=== PATIENT | female | born 1985 | race African-American/Black ===

== ENCOUNTER 2017-01-20 09:38 | Inpatient (IN) | payer MEDICAID, OTHER, SELFPAY ==
[2017-01-20 10:49] LABS: Bilirubin Negative (Negative); Blood, Urine Trace (Negative); Glucose, Urine (Dipstick) >=1000 mg/dL (Negative); Ketone, Urine > or equal to 80 mg/dL (Negative); Nitrite Negative (Negative); Protein, Urine (Dipstick) Negative (Neg-Trace); Urobilinogen 0.2 mg/dL (0.2-1.0)
[2017-01-20 10:50] LABS: #Basophils 0.1 thou/uL (0.0-0.2); #Lymphocytes 0.6 thou/uL (1.20-3.40); #Monocytes 0.2 thou/uL (0.11-0.59); #Neutrophils 8.2 thou/uL (1.40-6.50); %Basophils 0.6 % (0.0-1.0); %Eosinophils 0.2 % (0.0-10.0); %Lymphocytes 6.8 % (21.0-51.0); %Monocytes 2.1 % (0.0-10.0); Hematocrit 38.8 % (36.0-47.0); Mean Platelet Volume 6.9 fL (7.4-10.4); Red Blood Cell (RBC) Count 3.89 mill/uL (4.20-5.40); White Blood Cell (WBC) Count 9.1 thou/uL (4.8-10.8)
[2017-01-20 10:51] LABS: Bacteria/HPF 3+ HPF (None Seen); Hyaline Casts/LPF 0-3 HYALINE CAST LPF (0-3 Hyaline); Squamous Epithelial 21-50 HPF (0-3); WBC/HPF 0-3 HPF (0-3)
[2017-01-20 10:56] LABS: ALT (SGPT) 26 U/L (8-55); AST (SGOT) 36 U/L (5-34); Alkaline Phosphatase 189 U/L (40-150); BUN (Urea Nitrogen) 18 mg/dL (7.0-18.7); Bilirubin, Total 0.4 mg/dL (0.2-1.2); Calc. Creatinine Clearance 0 mL/min (70-130); Calcium 10.6 mg/dL (7.8-10.44); Carbon Dioxide Less than 8 mmol/L (22-29); Chloride 97 mmol/L (98-107); Estimated GFR-MDRD 55; Globulin 5.5 g/dL (2.4-3.5); Protein, Total 10.1 g/dL (6.0-8.3)
[2017-01-20] MEDS ORDERED: Ondansetron HCl/PF 4 MG/2 ML Vial IVP PRN (13:38)
[2017-01-20] MEDS ORDERED: Potassium Phosphate 9 MMOL in Sodium Chloride 0.9% 100 ML IVPB PRN (13:40)
[2017-01-20] MEDS ORDERED: Potassium Chloride 40 MEQ in Premix Bag 1 BAG IVPB PRN (13:40)
[2017-01-20] MEDS ORDERED: Magnesium 2 GM/NS 0.9% 100 ML 2 GM in Premix Bag 1 BAG IVPB PRN (13:40)
[2017-01-20] MEDS ORDERED: Potassium Phosphate 12 MMOL in Sodium Chloride 0.9% 250 ML 250 ML IV PRN (13:40)
[2017-01-20] MEDS ORDERED: Potassium Phosphate 15 MMOL in Sodium Chloride 0.9% 250 ML 250 ML IV PRN (13:40)
[2017-01-20] MEDS ORDERED: Sodium Chloride 0.9% 1,000 ML IV PRN ×3 (13:40)
[2017-01-20] MEDS ORDERED: CCU ELECTROLYTE REPLACEMENT PROTOCOL FS PRN (13:40)
[2017-01-20] MEDS ORDERED: Dextrose 50% Abboject 50 ML SYRINGE SLOW IVP PRN (13:40)
[2017-01-20] MEDS ORDERED: Dextrose 5 %-0.45 % NaCl 1,000 ML IV PRN (13:40)
[2017-01-20] MEDS ORDERED: Potassium Chloride 20 MEQ TAB PO PRN (13:40)
[2017-01-20] MEDS ORDERED: Dextrose 5% in Water 1,000 ML IV PRN ×2 (13:40→23:39)
[2017-01-20] MEDS ORDERED: Magnesium Oxide 400 MG TAB PO PRN ×2 (13:40)
[2017-01-20] MEDS ORDERED: Potassium Chloride 40 MEQ in Sodium Chloride 0.9% 250 ML 250 ML IVPB PRN (13:40)
[2017-01-20] MEDS ORDERED: NS 0.9% w/ 20 MEQ KCL 1,000 ML/1,000 ML BAG IV PRN ×2 (13:40)
[2017-01-20] MEDS ORDERED: ADD ELECTROLYTE REPLACEMENT SET TO PROFILE FS SCH (13:45)
[2017-01-20] MEDS: Sodium Chloride 0.9% 1,000 ML IV PRN ×2 (14:00→15:48)
--- NOTE | 2017-01-20 14:19 | HP ---
DATE OF ADMISSION: 01/20/2017 CHIEF COMPLAINT: Nausea, vomiting, abdominal cramps. HISTORY OF PRESENT ILLNESS: The patient is a 31-year-old -[place] female who was brought fro local in [facility] with the above-mentioned symptoms. Apparently, she did quite well until yesterday wh en she missed couple of doses of her insulin 70/30 and she started vomiting and having abdominal cram ps and she was taken to the emergency room for further evaluation. She was found to be in DKA. She had one episode of DKA in 06/2016 when she was hospitalized for that. She denies any fever or chills . She denies any cough. She denies any other problems. PAST MEDICAL HISTORY: Positive for, 1. Diabetes mellitus type 1, on insulin. 2. Hypertension. PAST SURGICAL HISTORY: 1. C-sections two times. 2. Tubal ligation. ALLERGIES: None. HOME MEDICATIONS: Levemir 15 units in the morning and 20 units at the bedtime. PSYCHIATRIC HISTORY: Positive for depression. FAMILY HISTORY: Her mother at the age of 52 of heart attack and father at the age of 60 of heart attack. SOCIAL HISTORY: She denies any alcohol intake, cigarette smoking or use any illicit drugs. REVIEW OF SYSTEMS: CONSTITUTIONAL: Negative for fever and chills. EYES: Negative for eye pain and eye discharge. ENT: Negative for nasal congestion and epistaxis. CARDIOVASCULAR: Negative for chest pain and palpitations. RESPIRATORY: Negative for shortness of breath and cough. GASTROINTESTINAL: Positive for nausea, vomiting. Negative for diarrhea. Positive for abdominal crane rigger mps. GENITOURINARY: Negative for dysuria and hematuria. DERMATOLOGIC: Negative for rash or erythema. MUSCULOSKELETAL: Negative for muscle pain and joint pains. PSYCHIATRIC: Positive for some depressive moods. PHYSICAL EXAMINATION: GENERAL: She is not in any distress during my visit, she is not actively vomiting. VITAL SIGNS: Blood pressure is 141/86, pulse is 127, and pulse oximetry is 95%. She is afebrile. HEENT: Atraumatic, normocephalic. Eyes are PERRLA. Conjunctivae pinkish. Sclerae nonicteric. Ora l mucosa is somewhat dry. NECK: Supple, no lymphadenopathy. Thyroid is not palpable. LUNGS: Clear. HEART: S1, S2 normal. No S3, no S4, no murmur. Just tachycardic. ABDOMEN: Soft, nontender to palpation. No guarding, no masses. EXTREMITIES: No clubbing, cyanosis or edema. She has a cuff placed on her left ankle. NEUROLOGIC: She is alert and oriented x4. There is no any sensorimotor deficits present. Cranial n erves are intact. LABORATORY DATA: Showed a white count of 9.1, hemoglobin 12.4, hematocrit 38.8, platelet count is 33 2,000, MCV is 99.8. Sodium of 134, potassium 5.6, chloride 97, CO2 less than 8, anion gap was not ca lculated, BUN 18, creatinine 1.36, glucose 677, calcium 10.6. Normal ALT, AST 36, phosphatase 189, t otal protein is 10.1, globulin 5.5. Both of them are elevated. Urinalysis showed yellow urine, clou dy, pH of 5.5, specific gravity is 1.024, proteins negative, glucose more than 1000, ketones more haja n 80, blood trace, 21-50 of squamous epithelial cells, 3+ bacteria, beta hydroxybutyrate 8.19. IMPRESSION: 1. Diabetic ketoacidosis. 2. History of hypertension. 3. Elevated total protein and globulin. 4. Elevated creatinine, which is probably prerenal azotemia secondary to volume loss secondary to vo miting. PLAN: To admit her to ICU. Condition is guarded. IV fluids per protocol, replacement of electrolyt es per protocol and insulin drip per protocol, which is standard for ICU on DKA patients. Also, I am going to check her serum protein electrophoresis since this level is elevated to rule out any abnorm alities.
[2017-01-20 14:47] LABS: Anion Gap 22 mmol/L (10-20); BUN (Urea Nitrogen) 12 mg/dL (7.0-18.7); Calc. Creatinine Clearance 75 mL/min (70-130); Calcium 9.2 mg/dL (7.8-10.44); Carbon Dioxide 13 mmol/L (22-29); Chloride 108 mmol/L (98-107); Estimated GFR-MDRD 78
[2017-01-20] MEDS ORDERED: FLU VACC QS2017-18 36 mo. & older 0.5 ML SYRINGE IM ONE (15:00)
--- NOTE | 2017-01-20 15:16 | RAD ---
PORTABLE CHEST: History: Respiratory distress. Comparison: 03-17-16 FINDINGS: Heart size and mediastinum are within normal limits. The lungs are clear of infiltrates. No significa nt bony findings. IMPRESSION: No active intrathoracic disease. POS: [facility]
[2017-01-20] MEDS: D5 1/2 NS w/20 mEq KCL 1,000 ML IV PRN ×2 (18:08→22:07)
[2017-01-20] MEDS ORDERED: hydrALAZINE 25 MG TAB PO PRN (19:19)
[2017-01-20] MEDS ORDERED: Metoprolol Tartrate 25 MG TAB PO SCH (20:30)
[2017-01-20 20:50] LABS: Calcium 8.2 mg/dL (7.8-10.44); Chloride 107 mmol/L (98-107)
[2017-01-20 20:52] LABS: Anion Gap 14 mmol/L (10-20); Carbon Dioxide 19 mmol/L (22-29)
[2017-01-20 20:54] LABS: Calc. Creatinine Clearance 90 mL/min (70-130); Estimated GFR-MDRD Greater than 90
[2017-01-20 20:55] LABS: BUN (Urea Nitrogen) 7 mg/dL (7.0-18.7)
[2017-01-20] MEDS: Famotidine 20 MG TAB PO SCH (20:55)
[2017-01-20] MEDS: Gabapentin 300 MG CAP PO SCH (20:55)
[2017-01-20 23:00] VITALS: BMI 22.6
[2017-01-20] MEDS ORDERED: Dextrose 50% Abboject 50 ML SYRINGE IVP PRN (23:39)
[2017-01-20] MEDS ORDERED: Insulin Detemir 100 UNITS/ML 20 UNITS in Pre-Filled Syringe 1 EACH SC SCH (23:45)
[2017-01-21 05:19] LABS: ALT (SGPT) 29 U/L (8-55); AST (SGOT) 66 U/L (5-34); Alkaline Phosphatase 108 U/L (40-150); Anion Gap 14 mmol/L (10-20); BUN (Urea Nitrogen) 7 mg/dL (7.0-18.7); Bilirubin, Total 0.2 mg/dL (0.2-1.2); Calc. Creatinine Clearance 80 mL/min (70-130); Calcium 7.9 mg/dL (7.8-10.44); Carbon Dioxide 17 mmol/L (22-29); Chloride 108 mmol/L (98-107); Estimated GFR-MDRD 85; Protein, Total 5.9 g/dL (6.0-8.3)
[2017-01-21] MEDS: HumaLOG 300 UNITS/3 ML VIAL SC PRN ×2 (05:36→11:24)
[2017-01-21] MEDS: Metoprolol Tartrate 25 MG TAB PO SCH (08:13)
[2017-01-21] MEDS: FLUoxetine HCl 20 MG CAP PO SCH (08:13)
[2017-01-21] MEDS: Famotidine 20 MG TAB PO SCH ×2 (08:13→21:51)
[2017-01-21] MEDS ORDERED: Enoxaparin Sodium 40 MG/0.4 ML SYRINGE SC SCH (09:00)
--- NOTE | 2017-01-21 09:07 | PDOC.PN ---
- Subjective Encounter Start Date: 01/21/17 Encounter Start Time: 08:50 Subjective: f/u for DKA and missed insulin dosing. DKA resolving and off insulin gtt. -: Hypoglycemic this am but corrected with po intake. No new complaints. - Objective Resuscitation Status: Resuscitation Status FULL:Full Resuscitation MAR Reviewed: Yes Vital Signs & Weight: Vital Signs (12 hours) Temp Pulse Resp 01/21/17 08:00 97.6 F 98 14 01/21/17 04:00 98.4 F 01/21/17 00:00 98.2 F Weight Weight 127 lb 13.89 oz Most Recent Monitor Data Heart Rate from ECG 101 NIBP 110/70 NIBP BP-Mean 78 Respiration from ECG 13 SpO2 100 I&O: 01/20/17 01/21/17 01/22/17 06:59 06:59 06:59 Intake Total 4010.3 1080 Output Total 1450 Balance 2560.3 1080 Result Diagrams: 01/20/17 10:40 01/21/17 04:17 Additional Labs: Accuchecks 01/21/17 01/21/17 01/21/17 08:55 08:08 07:42 POC Glucose 133 H 46 L* Less than 35 L* 01/20/17 01/20/17 01/20/17 23:52 23:12 22:09 POC Glucose 116 H 130 H 154 H 01/20/17 01/20/17 01/20/17 21:29 20:26 19:12 POC Glucose 266 H 324 H 166 H 01/20/17 01/20/17 01/20/17 18:06 17:17 16:13 POC Glucose 95 147 H 231 H 01/20/17 14:39 POC Glucose 165 H Laboratory Tests 01/20/17 01/20/17 01/21/17 09:50 09:50 04:17 Potassium 5.6 H Creatinine 1.36 H B-Hydroxybutyrate 8.19 H 0.24 Radiology Reviewed by me: Yes (PCXR - no acute process) EKG Reviewed by me: Yes (Tele - SR) Phys Exam - Physical Examination Constitutional: NAD HEENT: PERRLA, oral pharynx no lesions Neck: no JVD, supple Respiratory: no wheezing, clear to auscultation bilateral Cardiovascular: RRR Gastrointestinal: soft, non-tender, no distention, positive bowel sounds Musculoskeletal: no edema, pulses present Neurological: normal sensation, moves all 4 limbs Psychiatric: A&O x 3 Skin: normal turgor, cap refill <2 seconds Dx/Plan (1) DKA (diabetic ketoacidoses) Code(s): E13.10 - OTH DIABETES MELLITUS WITH KETOACIDOSIS WITHOUT COMA Status : Acute Qualifiers: Diabetes mellitus type: type 1 Comment: Resolving, resume home insulin regimen, advance diet, saline lock IVF (2) DESEAN (acute kidney injury) Code(s): N17.9 - ACUTE KIDNEY FAILURE, UNSPECIFIED Status: Acute Comment: Resolving with IVF's and correction of acidosis, avoid nephrotoxic meds (3) Nausea & vomiting Code(s): R11.2 - NAUSEA WITH VOMITING, UNSPECIFIED Status: Acute Comment: Resolved (4) Hyperkalemia Code(s): E87.5 - HYPERKALEMIA Status: Acute Comment: Resolved with IVF's (5) HTN (hypertension) Code(s): I10 - ESSENTIAL (PRIMARY) HYPERTENSION Status: Chronic Qualifiers: Hypertension type: essential hypertension Qualified Code(s): I10 - Essential (primary) hypertension Comment: Stable, resume Metoprolol - Plan out of bed/ambulate, DVT proph w/SCDs Stable overall -: Resume home insulin regimen -: Advance ADA diet -: Resume Metoprolol -: Transfer to medical floor * AM lab: CMP * Likely home 01/22/17
[2017-01-21] MEDS ORDERED: PROVENTIL INHALER 6.7 G (200 INHALATIONS) INH PRN (09:18)
[2017-01-21] MEDS ORDERED: Insulin Detemir 100 UNITS/ML 15 UNITS in Pre-Filled Syringe 1 EACH SC SCH (09:30)
[2017-01-21] MEDS ORDERED: Sodium Chloride 0.9% 10 ML ONE (15:20)
[2017-01-21] MEDS ORDERED: Insulin Detemir 100 UNITS/ML 20 UNITS in Pre-Filled Syringe 1 EACH SC SCH (21:00)
[2017-01-21] MEDS ORDERED: Gabapentin 300 MG CAP PO SCH (21:00)
[2017-01-21] MEDS: Gabapentin 300 MG CAP PO SCH (21:51)
[2017-01-21] MEDS ORDERED: Insulin Detemir 100 UNITS/ML 10 UNITS in Pre-Filled Syringe 1 EACH SC SCH (23:45)
[2017-01-22 05:54] LABS: ALT (SGPT) 26 U/L (8-55); AST (SGOT) 34 U/L (5-34); Alkaline Phosphatase 117 U/L (40-150); Anion Gap 11 mmol/L (10-20); BUN (Urea Nitrogen) 7 mg/dL (7.0-18.7); Bilirubin, Total 0.2 mg/dL (0.2-1.2); Calc. Creatinine Clearance 116 mL/min (70-130); Calcium 8.7 mg/dL (7.8-10.44); Carbon Dioxide 29 mmol/L (22-29); Chloride 103 mmol/L (98-107); Estimated GFR-MDRD Greater than 90; Globulin 3.3 g/dL (2.4-3.5); Protein, Total 6.3 g/dL (6.0-8.3)
[2017-01-22] MEDS: Famotidine 20 MG TAB PO SCH (07:58)
[2017-01-22] MEDS: Metoprolol Tartrate 25 MG TAB PO SCH (07:58)
[2017-01-22] MEDS: FLUoxetine HCl 20 MG CAP PO SCH (07:59)
[2017-01-22] MEDS ORDERED: Non-Formulary Item 1 EACH (Levemir Flexpen [Levemir Flexpen] 15 UNIT) SC SCH (09:00)
[2017-01-22] MEDS ORDERED: Insulin Detemir 100 UNITS/ML 15 UNITS in Pre-Filled Syringe 1 EACH SC SCH (09:00)
[2017-01-22] MEDS ORDERED: Diabetic Tussin 200 MG/10 ML UDCUP PO PRN (09:38)
[2017-01-22] MEDS: HumaLOG 300 UNITS/3 ML VIAL SC PRN (11:26)
[2017-01-22 11:56] VITALS: BP 150/99; TEMP 98.5
--- NOTE | 2017-01-22 13:41 | DIS ---
DATE OF ADMISSION: 01/20/2017 DATE OF DISCHARGE: 01/22/2017 DISCHARGE DIAGNOSES: 1. Diabetic ketoacidosis, resolved. 2. Hyperkalemia, resolved. 3. Acute kidney injury secondary to #1, resolved. 4. Hypertension, stable. 5. Nausea and vomiting secondary to #1, resolved. CONSULTATIONS: None. PERTINENT LABORATORY DATA AND X-RAY FINDINGS: Creatinine ranged between 0.65-1.36 with estimated GFR ranging between 55 to greater than 90. Potassium ranged between 4.7-5.6, calcium ranged between 9.2 -10.6. CBC within normal limits. Beta hydroxybutyrate level ranged between 0.24-8.19. Portable nydia st x-ray dated 01/20/2017 showed no acute cardiopulmonary process. HOSPITAL COURSE: Patient was initially admitted to the Critical Care Unit after presenting with diab etic ketoacidosis, nausea, vomiting, and abdominal cramps. The patient was placed on insulin infusio n and given aggressive IV fluid hydration in the context of diabetic ketoacidosis protocol. The harini ent's overall glucose improved within 24 hours and the insulin infusion was discontinued. The patien t's nausea and vomiting also resolved with resolution of diabetic ketoacidosis and was able to transi tion to regular oral intake. The patient was noted with intermittent hypoglycemia with adjustments t o her chronic long-acting insulin regimen to current Levemir dosing of 10 units subcutaneously b.i.d. The patient may need additional titration of her long-acting insulin regimen on an ongoing basis af ter discharge. Overall, the patient remained clinically stable throughout the hospital course, ileana ating regular oral intake, voiding appropriately and ready for discharge on 01/22/2017. DISCHARGE MEDICATIONS: 1. Levemir 10 units subcutaneously b.i.d. x24 hours, then 15 units subcutaneously b.i.d. 2. NovoLog FlexPen 15 units subcutaneously t.i.d. with meals. 3. Gabapentin 300 mg p.o. at bedtime. 4. Prozac 20 mg p.o. daily. 5. ProAir HFA 2 puffs inhaled q.4 hours p.r.n. 6. Metoprolol succinate 25 mg p.o. daily. FOLLOWUP: Patient to follow up with her primary care provider Dr. Iman Peña at [facility] in [place], [place] within 7 days of discharge. CONDITION ON DISCHARGE: Stable. ACTIVITY: ad jerome. DIET: ADA. CODE STATUS: FULL. DISPOSITION: Home 01/22/2017.
[2017-01-23 09:19] LABS: A/G Ratio 0.8 (0.7-1.7); Albumin 3.2 g/dL (2.9-4.4); Alpha 1 0.3 g/dL (0.0-0.4); Alpha 2 1.1 g/dL (0.4-1.0); Beta 1.3 g/dL (0.7-1.3); Gamma 1.2 g/dL (0.4-1.8); Globulin, Total 3.9 g/dL (2.2-3.9); M-Spike Not Observed g/dL (Not Observed)
== END 2017-01-22 12:40 | disposition home or self-care (01) | DRG 638 ==
LOC: ERS 09:38 → CCU 13:32 → 3SE 01-21 09:50
PROVIDERS: ADMIT Internal Medicine; ATTEND Internal Medicine
DX: E10.10 Type 1 diabetes mellitus with ketoacidosis without coma (principal); N17.9 Acute kidney failure, unspecified; E87.5 Hyperkalemia; I10 Essential (primary) hypertension; Z79.4 Long term (current) use of insulin; Z23 Encounter for immunization
CPT/HCPCS: 36415; 36416; 71010; 80053; 81003; 81015; 82010; 84165; 85025; 90471; 90682; 93005; 93010; 96361; 96365; A4216; G0008; J1650; J1815; J7050; Q2036

== ENCOUNTER 2017-11-02 05:09 | Inpatient (IN) | payer OTHER ==
[2017-11-02] MEDS ORDERED: diphenhydrAMINE 50 MG/ML VIAL ONE (05:36)
[2017-11-02] MEDS ORDERED: Metoclopramide HCl 10 MG/2 ML VIAL ONE (05:36)
[2017-11-02 05:53] LABS: Base Excess-Venous -16.5 mmol/L (0 (+/- 2.5)); CO2 Tension (PvCO2) 21.5 mmHg (41.0-51.0); Calcium, Ionized 1.03 mmol/L (1.12-1.32); Hemoglobin - Calc 15.2 g/dL (12.0-18.0); O2 Tension (PvO2) 37.3 mmHg (35.0-45.0); Potassium 4.7 mmol/L (3.4-4.7); T. Carbon Dioxide 9.6 mmol/L (1.0-85.0); pH (Venous) 7.227 (7.35-7.45); vO2 Saturation-calc 62.2 % (94-98)
[2017-11-02 05:56] LABS: #Lymphocytes 0.7 thou/uL (1.20-3.40); #Monocytes 0.2 thou/uL (0.11-0.59); #Neutrophils 11.1 thou/uL (1.40-6.50); %Basophils 0.4 % (0.0-1.0); %Eosinophils 0.1 % (0.0-10.0); %Lymphocytes 5.9 % (21.0-51.0); %Monocytes 1.6 % (0.0-10.0); Hemoglobin 13.3 g/dL (12.0-16.0); Mean Corpuscular Hemoglobin 31.9 pg (27.0-31.0); Mean Corpuscular Volume 96.9 fL (78.0-98.0); Mean Platelet Volume 7.2 fL (7.4-10.4); Platelet Count 354 thou/uL (130-400); RBC Distribution Width 11.8 % (11.5-14.5); Red Blood Cell (RBC) Count 4.18 mill/uL (4.20-5.40); White Blood Cell (WBC) Count 12.1 thou/uL (4.8-10.8)
[2017-11-02 06:42] LABS: ALT (SGPT) 13 U/L (8-55); AST (SGOT) 20 U/L (5-34); Albumin 4.5 g/dL (3.5-5.0); Alkaline Phosphatase 87 U/L (40-150); Anion Gap 27 mmol/L (10-20); BUN (Urea Nitrogen) 16 mg/dL (7.0-18.7); Bilirubin, Total 0.5 mg/dL (0.2-1.2); Calc. Creatinine Clearance 0 mL/min (70-130); Calcium 9.9 mg/dL (7.8-10.44); Carbon Dioxide 10 mmol/L (22-29); Chloride 102 mmol/L (98-107); Estimated GFR-MDRD 59; Globulin 4.3 g/dL (2.4-3.5); Lipase 5 U/L (8-78); Potassium 5.1 mmol/L (3.5-5.1); Protein, Total 8.8 g/dL (6.0-8.3); Sodium 134 mmol/L (136-145)
[2017-11-02 06:48] LABS: Glucose 591 mg/dL (70-105)
[2017-11-02 06:53] LABS: Pregnancy Test - Urine (BHCG) Negative (Negative); Pregu Control Background? CLEAR/WHITE (CLR/WHITE); Pregu Control Bar Appear? YES (CONTROL BAR)
[2017-11-02 06:54] LABS: Bilirubin Negative (Negative); Blood, Urine Negative (Negative); Clarity CLEAR (Clear); Glucose, Urine (Dipstick) >=1000 mg/dL (Negative); Leukocyte Negative (Negative); Nitrite Negative (Negative); Protein, Urine (Dipstick) Negative (Neg-Trace); Specific Gravity, Urine 1.022 (1.002-1.036); Urobilinogen 0.2 mg/dL (0.2-1.0)
[2017-11-02 06:55] LABS: Specific Gravity 1.022 (1.002-1.036)
[2017-11-02 08:40] LABS: Anion Gap 26 mmol/L (10-20); BUN (Urea Nitrogen) 16 mg/dL (7.0-18.7); Calc. Creatinine Clearance 0 mL/min (70-130); Calcium 9.2 mg/dL (7.8-10.44); Carbon Dioxide 8 mmol/L (22-29); Chloride 109 mmol/L (98-107); Estimated GFR-MDRD 63; Glucose 494 mg/dL (70-105); Potassium 6.3 mmol/L (3.5-5.1); Sodium 137 mmol/L (136-145)
[2017-11-02] MEDS ORDERED: NS 0.9% w/ 20 MEQ KCL 1,000 ML IV PRN ×2 (09:02)
[2017-11-02] MEDS ORDERED: Dextrose 5 %-0.45 % NaCl 1,000 ML IV PRN (09:02)
[2017-11-02] MEDS ORDERED: hydrALAZINE 20 MG/ML VIAL SLOW IVP PRN (09:02)
[2017-11-02] MEDS ORDERED: Zolpidem Tartrate 5 MG TAB PO PRN (09:02)
[2017-11-02] MEDS ORDERED: Senokot 8.6 MG TAB PO PRN (09:02)
[2017-11-02] MEDS ORDERED: Eucerin (Mineral Oil/Petrolatum,White) 30 gm Jar TOP PRN (09:02)
[2017-11-02] MEDS ORDERED: Milk Of Magnesia 30 ML UDCUP PO PRN (09:02)
[2017-11-02] MEDS ORDERED: Loratadine 10 MG TAB PO PRN (09:02)
[2017-11-02] MEDS ORDERED: Acetaminophen 325 MG TAB PO PRN (09:02)
[2017-11-02] MEDS ORDERED: Sodium Chloride 0.9% 1,000 ML IV PRN ×4 (09:02)
[2017-11-02] MEDS ORDERED: HYDROcodone/Acetaminophen 5/325 mg Tablet PO PRN (09:02)
[2017-11-02] MEDS ORDERED: Artificial Tears 18 DROP/0.9 ML EA EYE PRN (09:02)
[2017-11-02] MEDS ORDERED: Chloraseptic Spray 180 ml Bottle PO PRN (09:02)
[2017-11-02] MEDS ORDERED: Loperamide HCl 2 MG CAP PO PRN (09:02)
[2017-11-02] MEDS ORDERED: CCU Electrolyte Replacement 1 EACH IVPB ONE (09:02)
[2017-11-02] MEDS ORDERED: Ondansetron ODT 4 MG TAB PO PRN (09:02)
[2017-11-02] MEDS ORDERED: Diabetic Tussin 200 MG/10 ML UDCUP PO PRN (09:02)
[2017-11-02] MEDS ORDERED: Sodium Chloride 0.65% Nasal 44 ML BOT EA NARE PRN (09:02)
[2017-11-02] MEDS ORDERED: Albuterol Sulfate 2.5 mg/3 ml Neb NEB PRN (09:08)
[2017-11-02] MEDS ORDERED: Potassium Chloride 40 MEQ in Premix Bag 1 BAG IVPB PRN (09:09)
[2017-11-02] MEDS ORDERED: Potassium Phosphate 12 MMOL in Sodium Chloride 0.9% 250 ML 250 ML IV PRN (09:09)
[2017-11-02] MEDS ORDERED: Potassium Phosphate 9 MMOL in Sodium Chloride 0.9% 100 ML IVPB PRN (09:09)
[2017-11-02] MEDS ORDERED: Potassium Chloride 40 MEQ in Sodium Chloride 0.9% 250 ML 250 ML IVPB PRN (09:09)
[2017-11-02] MEDS ORDERED: Potassium Chloride 20 MEQ TAB PO PRN (09:09)
[2017-11-02] MEDS ORDERED: Magnesium 2 GM/NS 0.9% 100 ML 2 GM in Premix Bag 1 BAG IVPB PRN (09:09)
[2017-11-02] MEDS ORDERED: Magnesium Oxide 400 MG TAB PO PRN ×2 (09:09)
[2017-11-02] MEDS ORDERED: Potassium Phosphate 15 MMOL in Sodium Chloride 0.9% 250 ML 250 ML IV PRN (09:09)
--- NOTE | 2017-11-02 09:24 | HP ---
PRIMARY CARE PHYSICIAN: [facility] call admission. REASON FOR ADMISSION: Diabetic ketoacidosis. HISTORY OF PRESENT ILLNESS: A 32-year-old -[place] female who has history of type 1 diabetes on insulin, who came to emergency room with complaint of hyperglycemia. The patient has diabetes type 1 for last 22 years and she had in the past several admissions for DKA. At this time, the patient reports that she did not took insulin last night. She checked her blood sugar which was very high. She was feeling nausea and mild shortness of breath. She was feeling haja t she is going to get diabetic ketoacidosis and that is why she decided to come to emergency room for evaluation. She does not have any kind of infection. She denies any UTI symptoms. She does not jacome ve any constipation, diarrhea, melena, hematochezia. She does not have any upper respiratory or lowe r respiratory symptoms. Patient reports that normally she takes Levemir insulin 22 units twice daily , but last night she did not took bedtime Levemir dose and she is on NovoLog 15 units twice daily whi ch she took yesterday. She did not ran out her medication. She denies any abdominal pain. She king es any headache, sore throat, or focal motor or sensory symptoms. ALLERGIES: No known drug allergy. CURRENT HOME MEDICATIONS: NovoLog insulin 15 units subcu twice daily, Levemir insulin 20 units subcu b.i.d., lisinopril 5 mg p.o. daily, metoprolol 25 mg twice daily. REVIEW OF SYSTEMS: The following complete review of systems was negative, unless otherwise mentioned in the HPI or below: Constitutional: Weight loss or gain, ability to conduct usual activities. Skin: Rash, itching. Eyes: Double vision, pain. ENT/Mouth: Nose bleeding, neck stiffness, pain, tenderness. Cardiovascular: Palpitations, dyspnea on exertion, orthopnea. Respiratory: Shortness of breath, wheezing, cough, hemoptysis, fever or night sweats. Gastrointestinal: Poor appetite, abdominal pain, heartburn, nausea, vomiting, constipation, or diarr hea. Genitourinary: Urgency, frequency, dysuria, nocturia. Musculoskeletal: Pain, swelling. Neurologic/Psychiatric: Anxiety, depression. Allergy/Immunologic: Skin rash, bleeding tendency. Please see my HPI for pertinent positive and negative. All other review of systems reviewed and nega tive except as mentioned in the HPI. PAST MEDICAL HISTORY: Diabetes type 1 on insulin, hypertension and mild intermittent asthma. PAST SURGICAL HISTORY: x2. PAST PSYCHIATRIC HISTORY: Anxiety, depression, bipolar disorder, not on any specific medication. SOCIAL HISTORY: Patient is drinking alcohol socially. She denies any smoking. She denies any other illicit drug abuse. She is working in [employer]. FAMILY HISTORY: No strong family history of stroke, but mother by age of 52 from heart attack a nd father from heart attack by age of 60. No family history of stroke or cancer. EMERGENCY ROOM COURSE: Patient is given IV fluid, insulin drip, Reglan 10 mg, and Benadryl 25 mg. PHYSICAL EXAMINATION: VITAL SIGNS: On arrival, blood pressure 166/82, pulse 135, respiratory rate 16, temperature 98.0, sa turation 99% on room air, weight 57.5 kilograms. GENERAL: Patient is currently alert, awake, no obvious acute distress, hypertensive and tachycardic. HEAD: Normocephalic, atraumatic. EYES: Pupils round, reactive to light. Extraocular muscle intact. ENT: Dry mucous membrane, no oral lesion, no pharyngeal erythema, no exudate. NECK: Supple, no JVD, no thyromegaly, no carotid bruit, no jugular venous distention. LUNGS: Clear to auscultation without any rhonchi or rales. CARDIAC: S1, S2 regular, tachycardia, no murmur, no gallop, no rub. ABDOMEN: Soft. Diffuse, vague discomfort noted. No peritoneal sign, no guarding, no rigidity, no r ebound. BACK: Examination unremarkable, no CVA tenderness. EXTREMITIES: Upper extremity passive movements of all joints are normal. Lower extremities: No saba ma. Good distal pulsation. SKIN: No skin rash. HEMATOLOGICAL: No lymphadenopathy. PSYCHIATRIC: Normal affect. NEUROLOGIC: Nonfocal examination. Motor and sensation within normal limits. Speech normal. IMAGING DATA AND SIGNIFICANT LABORATORY DATA: EKG showing sinus tachycardia. CBC: WBC 12.1, hemogl obin 13.3, platelets 354 with a left shift. VBG; pH 7.22, CO2 21.5, O2 37.3, bicarbonate 9.0. BMP: Sodium 137, potassium 6.3, chloride 109, carbon dioxide 8, BUN 16, creatinine 1.21, glucose 591, lewis cium 9.2. LFT: AST 20, ALT 13, alkaline phosphatase 87, lipase 5 and lbumin 4.5. Urinalysis: Gluc osuria and ketonuria. test negative. Serum 7.30. ASSESSMENT AND PLAN/IMPRESSION: 1. Acute diabetic ketoacidosis, type 1. Patient has ketoacidosis with a history of diabetes type 1, current presentation is consistent with diabetic ketoacidosis. The patient will be admitted in inte rmediate care unit. We will continue with insulin drip. We will monitor Accu-Chek every hourly. Th e patient will be given IV fluid per protocol. Her electrolytes will be replaced per protocol. We w ill monitor BMP and serum ketones as per protocol. We will check magnesium and phosphorus level. We will repeat CBC, BMP, hemoglobin A1c, magnesium, phosphorus, and serum ketones tomorrow. When anion gap closed and blood sugar drops to below 250, at that time, we will change IV fluid to dextrose con taining solution. We will closely monitor in intermediate care unit until DKA resolves and then we w ill consider transferring her to medical floor. After that, we will titrate her insulin requirement and adjust dose. Meanwhile, we will continue with symptomatic treatment. 2. Hypertension. We will continue lisinopril 5 mg p.o. daily and metoprolol 25 mg twice daily. 3. Mild intermittent asthma. We will continue Ventolin nebulization q.6 hours p.r.n. 4. Leukocytosis and sinus tachycardia likely related with DKA and underlying dehydration. We will m onitor on telemetry. 5. Deep venous thrombosis prophylaxis, Lovenox 40 mg subcu daily. 6. Gastrointestinal prophylaxis paste, Pepcid 20 mg IV b.i.d. 7. Code status: The patient is FULL CODE. The patient does not have any surrogate decision maker. Disposition plan based on clinical course. We are expecting patient's stay in hospital more than 2 m idnights. Plan of care discussed with the patient in detail.
[2017-11-02] MEDS: Famotidine/PF 20 mg/2ml Vial SLOW IVP SCH ×2 (09:26→21:11)
[2017-11-02] MEDS: Ondansetron HCl/PF 4 MG/2 ML Vial IVP PRN ×2 (09:28→17:38)
[2017-11-02] MEDS: Enoxaparin Sodium 40 MG/0.4 ML SYRINGE SC SCH (09:28)
[2017-11-02 10:25] VITALS: BMI 22.1
[2017-11-02 11:20] LABS: Magnesium 2.3 mg/dL (1.6-2.6); Phosphorus 3.1 mg/dL (2.3-4.7)
[2017-11-02] MEDS ORDERED: Calcium Carbonate 500 MG ChewTAB PO PRN (11:41)
[2017-11-02] MEDS: Mag-Al 1200 mg/1200 mg/30 ML UDCUP PO PRN ×2 (12:19→17:41)
[2017-11-02 12:50] LABS: BUN (Urea Nitrogen) 12 mg/dL (7.0-18.7); Calc. Creatinine Clearance 70 mL/min (70-130); Calcium 9.1 mg/dL (7.8-10.44); Chloride 114 mmol/L (98-107); Estimated GFR-MDRD 75; Glucose 260 mg/dL (70-105); Potassium 4.6 mmol/L (3.5-5.1); Sodium 140 mmol/L (136-145)
[2017-11-02 13:05] LABS: Carbon Dioxide Less than 8 mmol/L (22-29)
[2017-11-02 13:36] LABS: Anion Gap 22 mmol/L (10-20); BUN (Urea Nitrogen) 14 mg/dL (7.0-18.7); Calc. Creatinine Clearance 69 mL/min (70-130); Calcium 8.9 mg/dL (7.8-10.44); Chloride 114 mmol/L (98-107); Estimated GFR-MDRD 73; Glucose 253 mg/dL (70-105); Potassium 4.5 mmol/L (3.5-5.1); Sodium 140 mmol/L (136-145)
[2017-11-02 13:38] LABS: Carbon Dioxide 9 mmol/L (22-29)
[2017-11-02] MEDS: Metoprolol Tartrate 25 MG TAB PO SCH (14:03)
[2017-11-02 17:35] LABS: Anion Gap 12 mmol/L (10-20); BUN (Urea Nitrogen) 8 mg/dL (7.0-18.7); Calc. Creatinine Clearance 77 mL/min (70-130); Calcium 8.6 mg/dL (7.8-10.44); Carbon Dioxide 17 mmol/L (22-29); Chloride 115 mmol/L (98-107); Estimated GFR-MDRD 84; Glucose 76 mg/dL (70-105); Potassium 4.6 mmol/L (3.5-5.1); Sodium 139 mmol/L (136-145)
[2017-11-02] MEDS: D5 1/2 NS w/20 mEq KCL 1,000 ML IV PRN ×2 (17:44→21:15)
[2017-11-02 23:02] LABS: Anion Gap 8 mmol/L (10-20); BUN (Urea Nitrogen) 9 mg/dL (7.0-18.7); Calc. Creatinine Clearance 71 mL/min (70-130); Calcium 8.3 mg/dL (7.8-10.44); Carbon Dioxide 18 mmol/L (22-29); Chloride 113 mmol/L (98-107); Estimated GFR-MDRD 76; Glucose 268 mg/dL (70-105); Potassium 4.3 mmol/L (3.5-5.1); Sodium 135 mmol/L (136-145)
[2017-11-03] MEDS: D5 1/2 NS w/20 mEq KCL 1,000 ML IV PRN ×2 (01:49→05:26)
[2017-11-03 04:35] LABS: #Basophils 0.1 thou/uL (0.0-0.2); #Lymphocytes 2.4 thou/uL (1.20-3.40); #Monocytes 0.9 thou/uL (0.11-0.59); #Neutrophils 9.6 thou/uL (1.40-6.50); %Basophils 0.4 % (0.0-1.0); %Eosinophils 0.3 % (0.0-10.0); %Lymphocytes 18.1 % (21.0-51.0); %Neutrophils 74.2 % (42.0-75.0); Hemoglobin 11.5 g/dL (12.0-16.0); Mean Corpuscular HGB CONC 33.4 g/dL (32.0-36.0); Mean Corpuscular Hemoglobin 32.1 pg (27.0-31.0); Mean Corpuscular Volume 96.1 fL (78.0-98.0); Mean Platelet Volume 6.7 fL (7.4-10.4); Platelet Count 334 thou/uL (130-400); RBC Distribution Width 12.2 % (11.5-14.5); Red Blood Cell (RBC) Count 3.59 mill/uL (4.20-5.40)
[2017-11-03 04:38] LABS: Hemoglobin A1c 12.9 % (4.0-6.0)
[2017-11-03 05:24] LABS: ALT (SGPT) 9 U/L (8-55); AST (SGOT) 12 U/L (5-34); Albumin 3.5 g/dL (3.5-5.0); Alkaline Phosphatase 67 U/L (40-150); Anion Gap 11 mmol/L (10-20); BUN (Urea Nitrogen) 7 mg/dL (7.0-18.7); Bilirubin, Total 0.4 mg/dL (0.2-1.2); Calc. Creatinine Clearance 89 mL/min (70-130); Calcium 8.3 mg/dL (7.8-10.44); Carbon Dioxide 16 mmol/L (22-29); Chloride 113 mmol/L (98-107); Estimated GFR-MDRD Greater than 90; Glucose 135 mg/dL (70-105); Magnesium 1.8 mg/dL (1.6-2.6); Potassium 4.2 mmol/L (3.5-5.1); Protein, Total 6.5 g/dL (6.0-8.3); Sodium 136 mmol/L (136-145)
[2017-11-03] MEDS: Famotidine/PF 20 mg/2ml Vial SLOW IVP SCH ×2 (07:53→20:44)
[2017-11-03] MEDS: Metoprolol Tartrate 25 MG TAB PO SCH ×2 (07:58→20:45)
[2017-11-03] MEDS: Lisinopril 5 MG TAB PO SCH (07:58)
[2017-11-03] MEDS: Enoxaparin Sodium 40 MG/0.4 ML SYRINGE SC SCH (07:58)
[2017-11-03] MEDS ORDERED: Insulin Glargine 20 UNITS in Pre-Filled Syringe 1 EACH SC SCH (09:45)
[2017-11-03] MEDS ORDERED: Dextrose 5% in Water 1,000 ML IV PRN (09:46)
[2017-11-03] MEDS ORDERED: Dextrose 50% Abboject 50 ML SYRINGE IVP PRN (09:46)
[2017-11-03] MEDS ORDERED: HumaLOG 300 UNITS/3 ML VIAL SC PRN (09:46)
--- NOTE | 2017-11-03 12:26 | PDOC.PN ---
- Subjective Encounter Start Date: 11/03/17 Encounter Start Time: 12:24 Subjective: nsg notes rev, franky ovn, c/o of odynophagia - Objective Resuscitation Status: Resuscitation Status FULL:Full Resuscitation Vital Signs & Weight: Vital Signs (12 hours) Temp Pulse Resp BP Pulse Ox 11/03/17 11:05 98.7 F 103 H 16 118/74 99 11/03/17 07:58 112 H 11/03/17 07:25 98 11/03/17 07:19 98.4 F 112 H 16 129/89 99 11/03/17 04:00 99.8 F H 108 H 16 138/89 99 Weight Weight 124 lb 12.8 oz I&O: 11/02/17 11/03/17 11/04/17 06:59 06:59 06:59 Intake Total 7017.1 1730.3 Output Total 2700 800 Balance 4317.1 930.3 Result Diagrams: 11/03/17 04:07 11/03/17 04:07 Additional Labs: Accuchecks 11/03/17 11/03/17 11/03/17 10:01 09:03 07:57 POC Glucose 179 H 191 H 187 H 11/03/17 11/03/17 11/03/17 07:04 06:21 05:23 POC Glucose 240 H 245 H 213 H 11/03/17 11/03/17 11/03/17 04:29 03:27 02:22 POC Glucose 144 H 121 H 118 H 11/03/17 11/02/17 11/02/17 01:20 23:58 22:17 POC Glucose 134 H 173 H 217 H 11/02/17 11/02/17 11/02/17 21:07 20:00 18:26 POC Glucose 241 H 253 H 173 H 11/02/17 11/02/17 11/02/17 17:13 16:09 15:03 POC Glucose 75 74 133 H 11/02/17 11/02/17 11/02/17 14:03 13:12 12:22 POC Glucose 172 H 258 H 279 H Phys Exam - Physical Examination Constitutional: NAD lying in hospital bed HEENT: PERRLA, moist MMs Respiratory: no wheezing, no rales, no rhonchi, clear to auscultation bilateral Cardiovascular: RRR, no significant murmur, no rub Gastrointestinal: soft, non-tender, no distention, positive bowel sounds Musculoskeletal: no edema, pulses present Neurological: moves all 4 limbs Psychiatric: normal affect, A&O x 3 Dx/Plan - Plan * DKA * improving * transition pt to her home regimen with continued close monitoring * pt c/o odynophagia as the reason for poor po intake, states it started after she was throwing up - feels like her throat is tender * given poor oral intake, continue with IVF hydration poorly controlled IDDM needs close o/p f/u with A1c of 12 diet: diabetic as say activity: as say dvt ppx Review of Systems - Medications/Allergies Allergies/Adverse Reactions: Allergies Allergy/AdvReac Type Severity Reaction Status Date / Time No Known Allergies Allergy Verified 11/02/17 19:07 Medications: Current Medications Acetaminophen (Tylenol) 650 mg PO Q4H PRN PRN Reason: Headache/Fever or Pain Hydrocodone Bitart/Acetaminophen ([place] 5/325) 1 tab PO Q4H PRN PRN Reason: Moderate Pain (4-6) Last Admin: 11/02/17 09:25 Dose: 1 tab Al Hydroxide/Mg Hydroxide (Maalox) 30 ml PO Q6H PRN PRN Reason: Heartburn or Indigestion Last Admin: 11/02/17 17:41 Dose: 30 ml Albuterol Sulfate (Ventolin) 2.5 mg NEB [id number] PRN PRN Reason: Wheezing Artificial Tears (Tears Naturale) 0 drop EA EYE PRN PRN PRN Reason: Dry Eyes Calcium Carbonate (Tums) 1,000 mg PO Q4H PRN PRN Reason: Heartburn or Indigestion Last Admin: 11/02/17 13:13 Dose: 1,000 mg Dextrose/Water (Dextrose 50%) 25 gm IVP PRN PRN PRN Reason: HYPOGLYCEMIA PROTOCOL Enoxaparin Sodium (Lovenox) 40 mg SC 0900 EDY Last Admin: 11/03/17 07:58 Dose: 40 mg Famotidine (Pepcid) 20 mg SLOW IVP Q12HR EDY Last Admin: 11/03/17 07:53 Dose: 20 mg Glucagon (Glucagon) 1 mg IM PRN PRN PRN Reason: HYPOGLYCEMIA PROTOCOL Guaifenesin (Robitussin Sf) 200 mg PO Q4H PRN PRN Reason: Cough Hydralazine HCl (Apresoline) 10 mg SLOW IVP Q4H PRN PRN Reason: Systolic BP > 180 Potassium Chloride 40 meq/ (Sodium Chloride) 270 mls @ 135 mls/hr IVPB ASDIR PRN PRN Reason: FOR SERUM K+ 2.5 - 3.5 Potassium Chloride 40 meq/ (Device) 100 mls @ 50 mls/hr IVPB ASDIR PRN PRN Reason: FOR SERUM K+ 2.5 - 3.5 Magnesium Sulfate 1 gm/ Sodium (Chloride) 102 mls @ 102 mls/hr IV PRN PRN PRN Reason: MAG LEVEL 1.4 - 2.0 Magnesium Sulfate 2 gm/ Device 100 mls @ 100 mls/hr IVPB ASDIR PRN PRN Reason: MAGNESIUM < 1.4 Potassium Phosphate 9 mmol/ (Sodium Chloride) 103 mls @ 25.75 mls/hr IVPB ASDIR PRN PRN Reason: Phosphate 1.0-1.8 Potassium Phosphate 12 mmol/ (Sodium Chloride) 254 mls @ 63.5 mls/hr IV ASDIR PRN PRN Reason: Serum phosphate 0.5-0.9 Potassium Phosphate 15 mmol/ (Sodium Chloride) 255 mls @ 63.75 mls/hr IV ASDIR PRN PRN Reason: Serum Phos < 0.5 Insulin Glargine 20 units/ (Miscellaneous Medication) 0.2 mls @ 0 mls/hr SC BID EDY Dextrose/Water (D5w) 1,000 mls @ 0 mls/hr IV INF PRN PRN Reason: HYPOGLYCEMIA PROTOCOL Insulin Human Lispro (Humalog) 15 units SC BID [facility] Insulin Human Lispro (Humalog) 0 units SC .MILD SLIDING SCALE PRN; Protocol PRN Reason: MILD SLIDING SCALE Lisinopril (Zestril) 5 mg PO DAILY [facility] Last Admin: 11/03/17 07:58 Dose: 5 mg Loperamide HCl (Imodium) 2 mg PO PRN PRN PRN Reason: Diarrhea/Loose Stools Loratadine (Claritin) 10 mg PO DAILYPRN PRN PRN Reason: Sinus Symptoms Magnesium Hydroxide (Milk Of Magnesium) 30 ml PO DAILYPRN PRN PRN Reason: Constipation Magnesium Oxide (Magnesium Oxide) 400 mg PO BIDPRN PRN PRN Reason: FOR SERUM MAG 1.4 - 2.0 Magnesium Oxide (Magnesium Oxide) 800 mg PO PRN PRN PRN Reason: FOR SERUM MAG < 1.4 Metoprolol Tartrate (Lopressor) 25 mg PO BID EDY Last Admin: 11/03/17 07:58 Dose: 25 mg Mineral Oil/White Petrolatum (Eucerin Cream) 0 gm TOP BIDPRN PRN PRN Reason: Dry Skin Miscellaneous Medication (Phos-Nak) 1 pkt PO TIDPRN PRN PRN Reason: FOR PHOS LEVEL 1.0 - 1.8 Miscellaneous Medication (Phos-Nak) 2 pkt PO TIDPRN PRN PRN Reason: FOR PHOS LEVEL 0.5 - 1.0 Last Admin: 11/03/17 06:49 Dose: 2 pkt Ondansetron HCl (Zofran Odt) 4 mg PO Q6H PRN PRN Reason: Nausea/Vomiting Ondansetron HCl (Zofran) 4 mg IVP Q6H PRN PRN Reason: Nausea/Vomiting Last Admin: 11/02/17 17:38 Dose: 4 mg Phenol (Chloraseptic [address] Bot) 0 ml PO PRN PRN PRN Reason: Sore Throat Potassium Chloride (K-Dur) 40 meq PO ASDIR PRN PRN Reason: FOR SERUM K+ 2.5 - 3.5 Potassium Chloride (Klor-Con) 40 meq PER TUBE ASDIR PRN PRN Reason: FOR SERUM K+ 2.5-3.5 Senna (Senokot) 2 tab PO HSPRN PRN PRN Reason: Constipation Sodium Chloride ([place] Nasal [address] 0.65%) 0 ml EA NARE QIDPRN PRN PRN Reason: Nasal Congestion Zolpidem Tartrate (Ambien) 5 mg PO HSPRN PRN PRN Reason: Insomnia
[2017-11-03] MEDS: Ondansetron HCl/PF 4 MG/2 ML Vial IVP PRN (14:12)
[2017-11-03] MEDS ORDERED: Pantoprazole 40 MG VIAL IVP SCH (15:45)
[2017-11-03 15:49] LABS: Bilirubin Negative (Negative); Blood, Urine Large (Negative); Clarity CLOUDY (Clear); Glucose, Urine (Dipstick) 500 mg/dL (Negative); Leukocyte Small (Negative); Nitrite Negative (Negative); Protein, Urine (Dipstick) 100 mg/dL (Neg-Trace); Specific Gravity, Urine 1.013 (1.002-1.036); Urobilinogen 0.2 mg/dL (0.2-1.0); pH, Urine 5.5 (5.0-9.0)
[2017-11-03 15:52] LABS: Hyaline Casts/LPF 0-3 HYALINE CAST LPF (0-3 Hyaline); Pathc Cast-AUWi Flag 0.35 (0-2.49); WBC/HPF 21-50 HPF (0-3)
[2017-11-03 15:55] LABS: RBC/HPF GREATER THAN 50-TNTC HPF (0-3)
[2017-11-03 16:01] LABS: Bacteria/HPF 1+ HPF (None Seen); Yeast-All Forms None Seen HPF (None Seen)
[2017-11-03] MEDS: Aluminum & Magnesium Hydroxide 60 ML, Lidocaine 2% Viscous Solution 30 ML, diphenhydrAM... SSW PRN (16:05)
[2017-11-03] MEDS: Pantoprazole 40 MG VIAL IVP SCH (20:44)
[2017-11-03] MEDS: Insulin Glargine 20 UNITS in Pre-Filled Syringe 1 EACH SC SCH (21:00)
[2017-11-03] MEDS ORDERED: HumaLOG 300 UNITS/3 ML VIAL SC SCH (21:00)
[2017-11-04 04:17] LABS: Anion Gap 10 mmol/L (10-20); BUN (Urea Nitrogen) 6 mg/dL (7.0-18.7); Calc. Creatinine Clearance 110 mL/min (70-130); Calcium 8.6 mg/dL (7.8-10.44); Carbon Dioxide 23 mmol/L (22-29); Chloride 108 mmol/L (98-107); Estimated GFR-MDRD Greater than 90; Glucose 92 mg/dL (70-105); Potassium 3.4 mmol/L (3.5-5.1); Sodium 138 mmol/L (136-145)
[2017-11-04] MEDS: Metoprolol Tartrate 25 MG TAB PO SCH (08:40)
[2017-11-04] MEDS: Lisinopril 5 MG TAB PO SCH (08:40)
[2017-11-04] MEDS: Enoxaparin Sodium 40 MG/0.4 ML SYRINGE SC SCH (08:40)
[2017-11-04] MEDS: Insulin Glargine 20 UNITS in Pre-Filled Syringe 1 EACH SC SCH (08:40)
[2017-11-04] MEDS: Pantoprazole 40 MG VIAL IVP SCH (08:43)
[2017-11-04] MEDS: Aluminum & Magnesium Hydroxide 60 ML, Lidocaine 2% Viscous Solution 30 ML, diphenhydrAM... SSW PRN (09:50)
[2017-11-04 10:53] VITALS: BP 146/95; TEMP 97.7
--- NOTE | 2017-11-04 11:51 | PQF ---
DATE: 11-04-17 ATTN: DR. NICOLA TOMAS Please exercise your independent, professional judgment in responding to the clarification form. Clinical indicators are provided on the bottom of this form for your review Please check appropriate box(s): [ ] Acute Renal Failure (ARF) / Acute Kidney Injury (DESEAN) [ ] Insignificant Lab Values [ ] Other diagnosis [ ] Unable to determine In addition, please specify: Present on Admission (POA): [ ] Yes [ ] No [ ] Unable to determine National Kidney Foundation Guidelines for CKD Staging Stage I Kidney damage with normal or increased GFR GFR > 90 Stage II Kidney damage with mildly decreased GFR GFR 60-89 Stage III Kidney damage with moderately decreased GFR GFR 30-59 Stage IV Kidney damage with severely decreased GFR GFR 16-29 Stage V Kidney failure GFR<15 ESRD End Stage Renal Disease On dialysis Acute Renal Failure/Acute Kidney Failure defined as: Increases in SCr by (>) 0.3 mg/dl within 48 hours OR- Increases in SCr by (>) 1.5 times baseline, known or presumed to have occurred within the prior 7 days OR- Urine volume < 0.5 ml/kg/hour for 6 hours (KDIGO supplement 2012 for RIFLE/SANDRA criteria) For continuity of documentation, please document condition throughout progress notes and discharge summary. Thank You. CLINICAL INDICATORS - SIGNS / SYMPTOMS / LABS GFR: 11-02-17: 59, 63, 75, 73, 84, 76 18: GREATER THAN 90 18: GREATER THAN 90 CREATININE: 11-02-17: 1.27, 1.21, 1.04, 1.06, 0.94, 1.02 18: 0.82 918: 0.66 BUN: 18: 16, 16, 12, 14, 8, 9 916-18: 7 918: 6 ER: NAUSEA, VOMITING, DIARRHEA RISK FACTORS: ER: NAUSEA, VOMITING, DIARRHEA H&P: LEUKOCYTOSIS AND SINUS TACHYCARDIA LIKELY RELATED WITH DKA AND UNDERLYING DEHYDRATION TREATMENTS: ER: IVF, NOVOLIN R, IVF 2L (This form is maintained as a part of the permanent medical record) 2014 [employer]. All Rights Reserved [email or web address] Office: [phone] [facility] [email or web address]
--- NOTE | 2017-11-04 11:58 | PDOC.PN ---
- Subjective Encounter Start Date: 11/04/17 Encounter Start Time: 10:15 -: old records requested/rev Patient seen and examined. No new complaints. No overnight events - Objective Resuscitation Status: Resuscitation Status FULL:Full Resuscitation MAR Reviewed: Yes Vital Signs & Weight: Vital Signs (12 hours) Temp Pulse Resp BP Pulse Ox 11/04/17 10:52 97.7 F 93 15 146/95 H 99 11/04/17 08:40 101 H 11/04/17 08:05 98 11/04/17 07:26 98.2 F 101 H 15 139/98 H 98 11/04/17 03:46 98.4 F 97 16 133/85 99 11/04/17 02:00 99 Weight Weight 124 lb 12.8 oz I&O: 11/03/17 11/04/17 11/05/17 06:59 06:59 06:59 Intake Total 7017.1 2380.3 Output Total 2700 1500 Balance 4317.1 880.3 Result Diagrams: 11/03/17 04:07 11/04/17 03:37 Additional Labs: Accuchecks 11/04/17 11/04/17 11/04/17 10:30 08:13 03:37 POC Glucose 191 H 77 94 11/03/17 11/03/17 11/03/17 20:55 16:45 14:03 POC Glucose 231 H 262 H 165 H EKG Reviewed by me: Yes (nsr) Phys Exam - Physical Examination Constitutional: NAD HEENT: PERRLA, moist MMs, sclera anicteric Neck: no JVD, supple Respiratory: no wheezing, no rales, no rhonchi Cardiovascular: RRR, no significant murmur, no rub Gastrointestinal: soft, non-tender, no distention, positive bowel sounds Musculoskeletal: no edema, pulses present Neurological: non-focal, normal sensation, moves all 4 limbs Psychiatric: normal affect, A&O x 3 Skin: no rash, normal turgor Dx/Plan (1) DESEAN (acute kidney injury) Code(s): N17.9 - ACUTE KIDNEY FAILURE, UNSPECIFIED Status: Resolved Comment : (2) DKA (diabetic ketoacidoses) Code(s): E13.10 - OTH DIABETES MELLITUS WITH KETOACIDOSIS WITHOUT COMA Status : Resolved Qualifiers: Diabetes mellitus type: type 1 Comment: (3) Hyperkalemia Code(s): E87.5 - HYPERKALEMIA Status: Resolved Comment: (4) Nausea & vomiting Code(s): R11.2 - NAUSEA WITH VOMITING, UNSPECIFIED Status: Resolved Comment : (5) HTN (hypertension) Code(s): I10 - ESSENTIAL (PRIMARY) HYPERTENSION Status: Chronic Qualifiers: Hypertension type: essential hypertension Qualified Code(s): I10 - Essential (primary) hypertension Comment: (6) GERD (gastroesophageal reflux disease) Code(s): K21.9 - GASTRO-ESOPHAGEAL REFLUX DISEASE WITHOUT ESOPHAGITIS Status: Chronic - Plan cont current plan of care * medication reviewed as below * symptomatic treatment * stable for discharge * resume home meds. * add protonix Review of Systems - Review of Systems Eyes: negative: Pain, Vision Change, Conjunctivae Inflammation, Eyelid Inflammation, Redness, Other ENT: negative: Ear Pain, Ear Discharge, Nose Pain, Nose Discharge, Nose Congestion, Mouth Pain, Mouth Swelling, Throat Pain, Throat Swelling, Other Respiratory: negative: Cough, Dry, Shortness of Breath, Hemoptysis, SOB with Excertion, Pleuritic Pain, Sputum, Wheezing Cardiovascular: negative: chest pain, palpitations, orthopnea, paroxysmal nocturnal dyspnea, edema, light headedness, other Gastrointestinal: negative: Nausea, Vomiting, Abdominal Pain, Diarrhea, Constipation, Melena, Hematochezia, Other Genitourinary: negative: Dysuria, Frequency, Incontinence, Hematuria, Retention , Other Musculoskeletal: negative: Neck Pain, Shoulder Pain, Arm Pain, Back Pain, Hand Pain, Leg Pain, Foot Pain, Other Skin: negative: Rash, Lesions, Tripp, Bruising, Other - Medications/Allergies Allergies/Adverse Reactions: Allergies Allergy/AdvReac Type Severity Reaction Status Date / Time No Known Allergies Allergy Verified 11/02/17 19:07 Medications: Current Medications Acetaminophen (Tylenol) 650 mg PO Q4H PRN PRN Reason: Headache/Fever or Pain Last Admin: 11/04/17 06:03 Dose: 650 mg Hydrocodone Bitart/Acetaminophen ([place] 5/325) 1 tab PO Q4H PRN PRN Reason: Moderate Pain (4-6) Last Admin: 11/02/17 09:25 Dose: 1 tab Al Hydroxide/Mg Hydroxide (Maalox) 30 ml PO Q6H PRN PRN Reason: Heartburn or Indigestion Last Admin: 11/02/17 17:41 Dose: 30 ml Albuterol Sulfate (Ventolin) 2.5 mg NEB [id number] PRN PRN Reason: Wheezing Artificial Tears (Tears Naturale) 0 drop EA EYE PRN PRN PRN Reason: Dry Eyes Calcium Carbonate (Tums) 1,000 mg PO Q4H PRN PRN Reason: Heartburn or Indigestion Last Admin: 11/02/17 13:13 Dose: 1,000 mg Al Hydroxide/Mg Hydroxide 60 ml/ Lidocaine HCl 30 ml/Diphenhydramine HCl 75 mg 0 ml SSW PRN PRN PRN Reason: Mouth Irritation Last Admin: 11/04/17 09:50 Dose: 120 ml Dextrose/Water (Dextrose 50%) 25 gm IVP PRN PRN PRN Reason: HYPOGLYCEMIA PROTOCOL Enoxaparin Sodium (Lovenox) 40 mg SC 0900 [facility] Last Admin: 11/04/17 08:40 Dose: 40 mg Glucagon (Glucagon) 1 mg IM PRN PRN PRN Reason: HYPOGLYCEMIA PROTOCOL Guaifenesin (Robitussin Sf) 200 mg PO Q4H PRN PRN Reason: Cough Hydralazine HCl (Apresoline) 10 mg SLOW IVP Q4H PRN PRN Reason: Systolic BP > 180 Insulin Glargine 20 units/ (Miscellaneous Medication) 0.2 mls @ 0 mls/hr SC BID [facility] Last Admin: 11/04/17 08:40 Dose: 0.2 mls Dextrose/Water (D5w) 1,000 mls @ 0 mls/hr IV INF PRN PRN Reason: HYPOGLYCEMIA PROTOCOL Insulin Human Lispro (Humalog) 0 units SC .MILD SLIDING SCALE PRN; Protocol PRN Reason: MILD SLIDING SCALE Last Admin: 11/03/17 16:50 Dose: 4 unit Lisinopril (Zestril) 5 mg PO DAILY [facility] Last Admin: 11/04/17 08:40 Dose: 5 mg Loperamide HCl (Imodium) 2 mg PO PRN PRN PRN Reason: Diarrhea/Loose Stools Loratadine (Claritin) 10 mg PO DAILYPRN PRN PRN Reason: Sinus Symptoms Magnesium Hydroxide (Milk Of Magnesium) 30 ml PO DAILYPRN PRN PRN Reason: Constipation Metoprolol Tartrate (Lopressor) 25 mg PO BID [facility] Last Admin: 11/04/17 08:40 Dose: 25 mg Mineral Oil/White Petrolatum (Eucerin Cream) 0 gm TOP BIDPRN PRN PRN Reason: Dry Skin Ondansetron HCl (Zofran Odt) 4 mg PO Q6H PRN PRN Reason: Nausea/Vomiting Ondansetron HCl (Zofran) 4 mg IVP Q6H PRN PRN Reason: Nausea/Vomiting Last Admin: 11/03/17 14:12 Dose: 4 mg Pantoprazole Sodium (Protonix) 40 mg IVP BID [facility] Last Admin: 11/04/17 08:43 Dose: 40 mg Phenol (Chloraseptic [place] 180 Ml Bot) 0 ml PO PRN PRN PRN Reason: Sore Throat Senna (Senokot) 2 tab PO HSPRN PRN PRN Reason: Constipation Sodium Chloride ([place] Nasal [place] 0.65%) 0 ml EA NARE QIDPRN PRN PRN Reason: Nasal Congestion Zolpidem Tartrate (Ambien) 5 mg PO HSPRN PRN PRN Reason: Insomnia
--- NOTE | 2017-11-04 12:16 | DIS ---
DATE OF ADMISSION: 11/02/2017 DATE OF DISCHARGE: 11/04/2017 PRIMARY CARE PHYSICIAN: [facility] call admission. DISCHARGE DISPOSITION: Home. PRIMARY DISCHARGE DIAGNOSES: 1. Nausea and vomiting, resolved. 2. Hyperkalemia, resolved 3. Diabetic ketoacidosis, improved. 4. Acute kidney injury, improved. SECONDARY DISCHARGE DIAGNOSES: Diabetes type 1, gastroesophageal reflux disease and hypertension. PRIMARY PROCEDURE/OPERATION: None. RADIOLOGICAL INVESTIGATION: None. SIGNIFICANT LABORATORY DATA: WBC 13.0, hemoglobin 11.5, platelet 334. VBG: pH 7.22, bicarbonate 9. Sodium 138, potassium 3.4, BUN 6, creatinine 0.66, calcium 8.6, hemoglobin A1c 12.9. Urinalysis un remarkable. Serum ketones 0.58. DISCHARGE MEDICATIONS: Lantus insulin 20 units subcu b.i.d., NovoLog insulin 15 units subcu b.i.d., lisinopril 5 mg p.o. daily, metoprolol tartrate 25 mg p.o. b.i.d., Protonix 40 mg p.o. daily. CONTRAINDICATIONS: None. CODE STATUS: FULL CODE. INPATIENT CONSULTANTS: None. ALLERGIES: No known drug allergies. DISCHARGE PLAN: Post hospital, patient will follow up with primary care physician. HOSPITAL COURSE: A 32-year-old female who has underlying history of diabetes type 1 who came to [facility] room with complaint of nausea, vomiting, and vague abdominal discomfort. On admission, she was tachycardic. She was significantly dehydrated. She had hyperkalemia and acute kidney injury. She had hyperglycemia. The patient was admitted to the intermediate care unit. She was treated with david betic ketoacidosis protocol. She was given IV fluid and her abnormal electrolytes were replaced. Brett az's condition was improved. Her DKA resolved. Acute kidney injury, improved. The patient was a symptomatic. At that point, we started on her home regimen. Her blood sugar is well controlled. To day, she wants to go home. She does not have any symptoms other than mild acid reflux symptoms and t hat is why we prescribed Protonix therapy. Dietary reeducation given. The patient is seen and examined at bedside today. Please see my progress note from today for furthe r detail. This patient is continued to be high risk for readmission because of her noncompliance.
--- NOTE | 2017-11-09 11:18 | EKG ---
Test Reason : Blood Pressure : / mmHG Vent. Rate : 135 BPM Atrial Rate : 135 BPM P-R Int : 140 ms QRS Dur : 076 ms QT Int : 296 ms P-R-T Axes : 066 078 025 degrees QTc Int : 444 ms Sinus tachycardia Otherwise normal ECG No ST elevation/CT Confirmed by DAVID PARDO M.D. ([id number]), editor farm journal TOBI RIVERA ([id number]) on 11/09/2017 11:17:42 AM Referred By: Confirmed By:DAVID PARDO M.D.
== END 2017-11-04 13:15 | disposition home or self-care (01) | DRG 638 ==
LOC: ERS 05:09 → IMCU/EMU 07:24
PROVIDERS: ADMIT Hospitalist; ATTEND Hospitalist
DX: E10.10 Type 1 diabetes mellitus with ketoacidosis without coma (principal); N17.9 Acute kidney failure, unspecified; Z79.4 Long term (current) use of insulin; E87.5 Hyperkalemia; K21.9 Gastro-esophageal reflux disease without esophagitis; I10 Essential (primary) hypertension; R00.0 Tachycardia, unspecified; E86.0 Dehydration; J45.20 Mild intermittent asthma, uncomplicated; F31.9 Bipolar disorder, unspecified; F41.9 Anxiety disorder, unspecified; Z79.51 Long term (current) use of inhaled steroids; R13.10 Dysphagia, unspecified
CPT/HCPCS: 36415; 36416; 80048; 80053; 81003; 81015; 81025; 82010; 82330; 82803; 83036; 83690; 83735; 84100; 85025; 93005; 96361; 96365; 96375; C9113; J1200; J1650; J1815; J2405; J2765; J7050; S0028

== ENCOUNTER 2018-01-20 08:33 | Outpatient (CLI) | payer OTHER ==
--- NOTE | 2018-01-20 15:20 | NM ---
GASTRIC EMPTYING STUDY: Date: 01/20/18 HISTORY: Early satiety. RADIOPHARMACEUTICAL: 2.1 mCi technetium-99m sulfur colloid mixed with scrambled egg, PO. FINDINGS: Sequential anterior images were obtained. Patient refused further imaging after the 2 hour image, and as a result this is an incomplete examination. However, there is 16% gastric emptying at 30 minutes, 36% emptying at 60 minutes, and 52% emptying at 2 hours. IMPRESSION: Incomplete examination as the patient refused additional delayed imaging at 3 and 4 hours. There is 5 2% emptying noted at 2 hour image. POS: HARSHAD
== END 2018-01-20 08:34 | disposition home or self-care (01) ==
LOC: NM 08:33
PROVIDERS: ATTEND Internal Medicine
DX: R68.81 Early satiety (principal)
CPT/HCPCS: 78264; A9541

== ENCOUNTER 2019-10-23 12:56 | Outpatient (CLI) | payer OTHER ==
--- NOTE | 2019-10-23 13:42 | MMO ---
Bilateral MAMMO Bilat Diag DDI+SHELBY. CLINICAL HISTORY: Patient is 34 years old and is seen for diagnostic exam. The patient has no family history of breast cancer. The patient has no personal history of cancer. VIEWS: The views performed were: bilateral craniocaudal with tomosynthesis; bilateral mediolateral oblique with tomosynthesis; and bilateral mediolateral with tomosynthesis. This study has been interpreted with the assistance of computer-aided detection. MAMMOGRAM FINDINGS: There are scattered fibroglandular densities. There are no suspicious masses, suspicious calcifications, or new areas of architectural distortion. IMPRESSION: THERE IS NO MAMMOGRAPHIC EVIDENCE OF MALIGNANCY. A ROUTINE FOLLOW-UP MAMMOGRAM AT AGE 41 IS RECOMMENDED. THE RESULTS OF THIS EXAM WERE SENT TO THE PATIENT. ACR BI-RADS Category 1 - Negative MAMMOGRAPHY NOTE: 1. A negative mammogram report should not delay a biopsy if a dominant of clinically suspicious mass is present. 2. Approximately 10% to 15% of breast cancers are not detected by mammography. 3. Adenosis and dense breasts may obscure an underlying neoplasm. Reported by: TAMY THOMPSON MD Electonically Signed: [id number]
== END 2019-10-23 12:57 | disposition home or self-care (01) ==
LOC: BICMAMMO 12:56
PROVIDERS: ATTEND Nurse Practitioner Women's Health
DX: N64.4 Mastodynia (principal)
CPT/HCPCS: 77066; G0279

== ENCOUNTER 2019-11-13 12:20 | Outpatient (CLI) | payer OTHER ==
--- NOTE | 2019-11-13 12:53 | RAD ---
XR Chest Pa Lat STANDARD HISTORY: Left-sided chest wall pain COMPARISON: None FINDINGS: The heart size is normal. The lungs are well expanded without focal areas of consolidation, pneumothorax or pleural effusions. The bony thorax is normal. IMPRESSION: Normal exam
== END 2019-11-13 12:21 | disposition home or self-care (01) ==
LOC: BICRAD 12:20
PROVIDERS: ATTEND Internal Medicine
DX: R07.89 Other chest pain (principal)
CPT/HCPCS: 71046

== ENCOUNTER 2020-03-17 05:15 | Emergency (ER) | payer OTHER ==
[2020-03-17] MEDS ORDERED: Ondansetron ODT 4 MG TAB ONE (05:35)
[2020-03-17 06:37] LABS: BHCG - Serum Negative (NEGATIVE); Pregs Control Background? CLEAR/WHITE (CLR/WHITE); Pregs Control Bar Appear? YES (CONTROL BAR)
[2020-03-17 06:54] LABS: ALT (SGPT) 9 U/L (8-55); AST (SGOT) 21 U/L (5-34); Albumin 4.1 g/dL (3.5-5.0); Alkaline Phosphatase 80 U/L (40-110); Anion Gap 16 mmol/L (10-20); BUN (Urea Nitrogen) 9 mg/dL (7.0-18.7); Bilirubin, Total 0.4 mg/dL (0.2-1.2); Calc. Creatinine Clearance 0 mL/min (70-130); Calcium 9.3 mg/dL (7.8-10.44); Carbon Dioxide 24 mmol/L (22-29); Chloride 101 mmol/L (98-107); Globulin 4.6 g/dL (2.4-3.5); Glucose 234 mg/dL (70-105); Lipase 4 U/L (8-78); Potassium 4.5 mmol/L (3.5-5.1); Protein, Total 8.7 g/dL (6.0-8.3); Sodium 136 mmol/L (136-145)
[2020-03-17 14:25] LABS: SARS-CoV-2 PCR by NAA Not Detected (NotDetected)
== END 2020-03-17 07:55 | disposition home or self-care (01) ==
LOC: ERS 05:15
DX: R11.2 Nausea with vomiting, unspecified (principal); R05 Cough; Z20.822 Contact with and (suspected) exposure to COVID-19; E10.9 Type 1 diabetes mellitus without complications; I10 Essential (primary) hypertension; Z79.4 Long term (current) use of insulin
CPT/HCPCS: 36416; 71045; 80053; 83690; 84703; 87635; Q0162; U0003; U0005

== ENCOUNTER 2020-03-18 15:53 | Inpatient (IN) | payer OTHER ==
[2020-03-18] MEDS ORDERED: Morphine 4 MG/ML VIAL ONE (18:23)
[2020-03-18] MEDS ORDERED: Clindamycin/D5W 900 mg/50 ml Premix Bag ONE (20:50)
[2020-03-18] MEDS ORDERED: Dextrose 5% in Water 1,000 ML IV PRN (20:58)
[2020-03-18] MEDS ORDERED: Dextrose 50% Abboject 50 ML SYRINGE SLOW IVP PRN (20:58)
[2020-03-18] MEDS ORDERED: Morphine 2 MG/ML VIAL SLOW IVP PRN (20:58)
[2020-03-18] MEDS ORDERED: Ondansetron PF 4 MG/2 ML Vial IVP PRN (20:58)
[2020-03-18] MEDS ORDERED: hydrALAZINE 20 MG/ML VIAL SLOW IVP PRN (20:58)
[2020-03-18] MEDS ORDERED: Sodium Chloride 0.9% 1,000 ML IV SCH (21:00)
[2020-03-18 21:02] LABS: ALT (SGPT) 9 U/L (8-55); AST (SGOT) 11 U/L (5-34); Albumin 4.3 g/dL (3.5-5.0); Alkaline Phosphatase 82 U/L (40-110); Anion Gap 13 mmol/L (10-20); BUN (Urea Nitrogen) 11 mg/dL (7.0-18.7); Bilirubin, Total 0.3 mg/dL (0.2-1.2); Calc. Creatinine Clearance 0 mL/min (70-130); Calcium 9.3 mg/dL (7.8-10.44); Carbon Dioxide 28 mmol/L (22-29); Chloride 103 mmol/L (98-107); Globulin 4.4 g/dL (2.4-3.5); Glucose 108 mg/dL (70-105); Potassium 3.4 mmol/L (3.5-5.1); Protein, Total 8.7 g/dL (6.0-8.3); Sodium 141 mmol/L (136-145)
[2020-03-18] MEDS ORDERED: traMADol HCl 50 MG TAB PO PRN (21:04)
[2020-03-18 21:18] LABS: #Basophils 0.1 thou/uL (0.0-0.2); #Eosinphils 0.1 thou/uL (0.0-0.7); #Monocytes 0.7 thou/uL (0.11-0.59); #Neutrophils 5.6 thou/uL (1.40-6.50); %Basophils 0.9 % (0.0-1.0); %Eosinophils 1.1 % (0.0-10.0); %Lymphocytes 31.6 % (21.0-51.0); %Neutrophils 59.5 % (42.0-75.0); Hemoglobin 13.2 g/dL (12.0-16.0); Mean Corpuscular Hemoglobin 30.7 pg (27.0-31.0); Mean Platelet Volume 6.8 fL (7.4-10.4); Platelet Count 342 thou/uL (130-400); RBC Distribution Width 12.2 % (11.5-14.5); White Blood Cell (WBC) Count 9.5 thou/uL (4.8-10.8)
[2020-03-18 22:04] LABS: Phosphorus 2.3 mg/dL (2.3-4.7)
[2020-03-18] MEDS: Ketorolac Tromethamine 30 MG/ML VIAL IVP SCH (23:19)
[2020-03-18] MEDS: Acetaminophen 500 MG TAB PO SCH (23:20)
[2020-03-18] MEDS: Famotidine 20 MG TAB PO SCH (23:20)
[2020-03-18 23:28] VITALS: BMI 25.5
[2020-03-19] MEDS ORDERED: Potassium Chloride 40 MEQ in Sodium Chloride 0.9% 250 ML 250 ML IVPB SCH (01:00)
[2020-03-19] MEDS: traMADol HCl 50 MG TAB PO PRN ×2 (03:38→14:08)
[2020-03-19] MEDS: Acetaminophen 500 MG TAB PO SCH ×4 (04:29→18:05)
[2020-03-19] MEDS ORDERED: Potassium Bicarbonate/Cit Ac 20 MEQ TAB PO SCH (05:15)
[2020-03-19] MEDS: Ketorolac Tromethamine 30 MG/ML VIAL IVP SCH ×4 (05:47→23:58)
[2020-03-19] MEDS: Clindamycin/D5W 600 MG in Premix Bag 1 BAG IVPB SCH ×3 (05:48→21:09)
[2020-03-19] MEDS: Chlorhexidine Gluconate 15 ML UDCUP SSP SCH ×2 (08:12→19:47)
[2020-03-19] MEDS: Senokot S 8.6-50 MG TAB PO SCH ×2 (08:12→19:48)
[2020-03-19] MEDS: Polyethylene Glycol 3350 17 GM Packet PO SCH (08:13)
[2020-03-19] MEDS: Famotidine 20 MG TAB PO SCH ×2 (08:13→19:48)
[2020-03-19] MEDS: Albuterol 200 PUFF (6.7GM INHALER) INH SCH ×2 (08:23→19:31)
[2020-03-19 08:44] LABS: BHCG - Serum Negative (NEGATIVE); Pregs Control Background? CLEAR/WHITE (CLR/WHITE); Pregs Control Bar Appear? YES (CONTROL BAR)
[2020-03-19] MEDS ORDERED: Polyethylene Glycol 3350 17 GM Packet PO SCH (09:00)
[2020-03-19] MEDS ORDERED: Senokot S 8.6-50 MG TAB PO SCH (09:00)
[2020-03-19] MEDS: Calcium Carbonate 500 MG ChewTAB PO PRN ×2 (11:20→19:47)
[2020-03-19] MEDS: Insulin Regular 300 UNITS/3 ML VIAL SC PRN ×2 (14:09→18:02)
[2020-03-19] MEDS: Insulin Glargine 20 UNITS in Pre-Filled Syringe 1 EACH SC SCH (19:48)
[2020-03-19] MEDS: Mag-Al 1200 mg/1200 mg/30 ML UDCUP PO PRN (21:09)
[2020-03-20] MEDS: Insulin Regular 300 UNITS/3 ML VIAL SC PRN ×4 (00:07→23:10)
[2020-03-20] MEDS: Ketorolac Tromethamine 30 MG/ML VIAL IVP SCH ×4 (05:17→22:57)
[2020-03-20] MEDS: Clindamycin/D5W 600 MG in Premix Bag 1 BAG IVPB SCH ×3 (05:18→22:57)
[2020-03-20] MEDS: Acetaminophen 500 MG TAB PO SCH ×2 (06:57)
[2020-03-20] MEDS ORDERED: Chlorhexidine Gluconate 15 ML UDCUP SSP ONE (07:38)
[2020-03-20] MEDS ORDERED: XYLOCAINE 2%-EPI 1:100,000 20 ML VIAL ONE (07:38)
[2020-03-20] MEDS ORDERED: AFRIN NASAL MIST 15 ML BOT ONE (07:50)
[2020-03-20] MEDS ORDERED: Midazolam HCl 2 mg/2 ml Vial ONE (07:50)
[2020-03-20] MEDS ORDERED: Fentanyl 100 MCG/2 ML VIAL ONE ×4 (07:50→11:40)
[2020-03-20] MEDS ORDERED: Lidocaine 2% Jelly 5 ML TUBE ONE (07:50)
[2020-03-20] MEDS: Albuterol 200 PUFF (6.7GM INHALER) INH SCH ×2 (08:15→22:59)
[2020-03-20] MEDS ORDERED: Acetaminophen W/ Codeine 5 ML UDCUP PO PRN (08:29)
[2020-03-20] MEDS ORDERED: Morphine 2 MG/ML VIAL SLOW IVP PRN (08:30)
[2020-03-20] MEDS ORDERED: Neomycin-Polymyxin 1 ML AMP ONE (08:48)
[2020-03-20] MEDS ORDERED: Sodium Chloride 0.9% 10 ML ONE (08:48)
[2020-03-20] MEDS ORDERED: PHENYLEPHRINE-NS 100 MCG/ML 10 ML SYRINGE ONE (09:16)
[2020-03-20] MEDS ORDERED: Ondansetron PF 4 MG/2 ML Vial ONE (09:16)
[2020-03-20] MEDS ORDERED: Glycopyrrolate 0.2 MG/ML 5 ML SYRINGE ONE (09:16)
[2020-03-20] MEDS ORDERED: Ketorolac Tromethamine 30 MG/ML VIAL ONE (09:16)
[2020-03-20] MEDS ORDERED: diphenhydrAMINE 50 MG/ML VIAL ONE (09:16)
[2020-03-20] MEDS ORDERED: PROPOFOL 200 MG/20 ML VIAL ONE (09:16)
[2020-03-20] MEDS ORDERED: Rocuronium Bromide 10 MG/ML (10ML VIAL) ONE (09:16)
[2020-03-20] MEDS ORDERED: Bacitracin Zinc Ointment 30 gm TUBE ONE (10:54)
[2020-03-20] MEDS ORDERED: Promethazine HCl 25 MG/ML VIAL IM PRN (11:12)
[2020-03-20] MEDS ORDERED: Ondansetron HCl/PF 4 MG/2 ML Vial IVP PRN (11:12)
[2020-03-20] MEDS ORDERED: HYDROmorphone 2 MG/ML VIAL SLOW IVP PRN (11:12)
[2020-03-20] MEDS ORDERED: Labetalol HCl 100 MG/20 ML VIAL ONE (11:37)
[2020-03-20] MEDS ORDERED: hydrALAZINE 20 MG/ML VIAL ONE (11:46)
[2020-03-20] MEDS: Acetaminophen 650 MG/20.3 ML UDCUP PO SCH ×4 (11:50→20:19)
[2020-03-20] MEDS: Chlorhexidine Gluconate 15 ML UDCUP SSP SCH ×2 (11:50→20:19)
[2020-03-20] MEDS: Insulin Glargine 20 UNITS in Pre-Filled Syringe 1 EACH SC SCH ×2 (11:50→20:20)
[2020-03-20] MEDS: Famotidine 20 MG TAB PO SCH ×2 (11:50→21:33)
[2020-03-20] MEDS: Polyethylene Glycol 3350 17 GM Packet PO SCH (11:50)
[2020-03-20] MEDS: Senokot S 8.6-50 MG TAB PO SCH ×2 (11:51→21:33)
[2020-03-20] MEDS: Promethazine HCl 25 MG/ML VIAL IM PRN ×2 (14:51→23:03)
[2020-03-20] MEDS: Mag-Al 1200 mg/1200 mg/30 ML UDCUP PO PRN ×2 (17:38→22:57)
[2020-03-20] MEDS: Sodium Chloride 0.9% 1,000 ML IV SCH ×2 (18:26→22:58)
[2020-03-20 18:30] LABS: #Lymphocytes 0.5 thou/uL (1.20-3.40); #Monocytes 0.3 thou/uL (0.11-0.59); #Neutrophils 13.2 thou/uL (1.40-6.50); %Basophils 0.1 % (0.0-1.0); %Eosinophils 0.1 % (0.0-10.0); %Lymphocytes 3.6 % (21.0-51.0); %Monocytes 2.2 % (0.0-10.0); Mean Corpuscular HGB CONC 33.2 g/dL (32.0-36.0); Mean Corpuscular Hemoglobin 31.8 pg (27.0-31.0); Mean Corpuscular Volume 95.7 fL (78.0-98.0); Platelet Count 310 thou/uL (130-400); RBC Distribution Width 11.9 % (11.5-14.5); Red Blood Cell (RBC) Count 4.41 mill/uL (4.20-5.40); White Blood Cell (WBC) Count 14.1 thou/uL (4.8-10.8)
[2020-03-20 18:48] LABS: Anion Gap 28 mmol/L (10-20); BUN (Urea Nitrogen) 14 mg/dL (7.0-18.7); Calc. Creatinine Clearance 81 mL/min (70-130); Calcium 9.4 mg/dL (7.8-10.44); Carbon Dioxide 12 mmol/L (22-29); Chloride 99 mmol/L (98-107); Glucose 335 mg/dL (70-105); Magnesium 1.7 mg/dL (1.6-2.6); Phosphorus 3.2 mg/dL (2.3-4.7); Potassium 5.8 mmol/L (3.5-5.1); Sodium 133 mmol/L (136-145)
[2020-03-20] MEDS ORDERED: Magnesium 2 GM/50 ML 2 GM in Premix Bag 1 BAG IVPB SCH (20:30)
[2020-03-20] MEDS ORDERED: Melatonin 3 MG TAB PO PRN (21:04)
[2020-03-20] MEDS ORDERED: diphenhydrAMINE 12.5 MG/5 ML UDCUP PO PRN (22:51)
[2020-03-20] MEDS ORDERED: Pantoprazole 40 MG VIAL IVP SCH (23:45)
[2020-03-21] MEDS: Sodium Chloride 0.9% 1,000 ML IV SCH ×2 (03:34→09:47)
[2020-03-21] MEDS: Insulin Regular 300 UNITS/3 ML VIAL SC PRN ×2 (03:36→12:13)
[2020-03-21] MEDS: Acetaminophen 650 MG/20.3 ML UDCUP PO SCH ×2 (03:51→08:41)
[2020-03-21] MEDS: Ketorolac Tromethamine 30 MG/ML VIAL IVP SCH ×2 (04:48→09:47)
[2020-03-21] MEDS: Clindamycin/D5W 600 MG in Premix Bag 1 BAG IVPB SCH (05:29)
[2020-03-21 06:38] LABS: #Basophils 0.1 thou/uL (0.0-0.2); #Lymphocytes 2.6 thou/uL (1.20-3.40); #Neutrophils 8.5 thou/uL (1.40-6.50); %Basophils 0.5 % (0.0-1.0); %Eosinophils 0.2 % (0.0-10.0); %Lymphocytes 21.1 % (21.0-51.0); %Monocytes 8.4 % (0.0-10.0); %Neutrophils 69.9 % (42.0-75.0); Hemoglobin 11.8 g/dL (12.0-16.0); Mean Corpuscular HGB CONC 33.6 g/dL (32.0-36.0); Mean Corpuscular Hemoglobin 31.5 pg (27.0-31.0); Mean Corpuscular Volume 93.6 fL (78.0-98.0); Mean Platelet Volume 6.8 fL (7.4-10.4); Platelet Count 342 thou/uL (130-400); Red Blood Cell (RBC) Count 3.76 mill/uL (4.20-5.40); White Blood Cell (WBC) Count 12.2 thou/uL (4.8-10.8)
[2020-03-21 06:50] LABS: Anion Gap 13 mmol/L (10-20); BUN (Urea Nitrogen) 12 mg/dL (7.0-18.7); Calc. Creatinine Clearance 84 mL/min (70-130); Calcium 8.2 mg/dL (7.8-10.44); Carbon Dioxide 18 mmol/L (22-29); Chloride 109 mmol/L (98-107); Glucose 183 mg/dL (70-105); Magnesium 2.5 mg/dL (1.6-2.6); Phosphorus 2.2 mg/dL (2.3-4.7); Potassium 4.2 mmol/L (3.5-5.1); Sodium 136 mmol/L (136-145)
[2020-03-21] MEDS: Albuterol 200 PUFF (6.7GM INHALER) INH SCH (07:30)
[2020-03-21] MEDS: Chlorhexidine Gluconate 15 ML UDCUP SSP SCH (08:41)
[2020-03-21] MEDS: Polyethylene Glycol 3350 17 GM Packet PO SCH (08:42)
[2020-03-21] MEDS: Senokot S 8.6-50 MG TAB PO SCH (08:42)
[2020-03-21] MEDS: Insulin Glargine 20 UNITS in Pre-Filled Syringe 1 EACH SC SCH (08:42)
[2020-03-21] MEDS ORDERED: Pantoprazole 40 MG GRANULES PACKET PO SCH (09:00)
[2020-03-21] MEDS ORDERED: Sodium Phosphate 30 MMOL in Sodium Chloride 0.9% 250 ML 250 ML IVPB SCH (09:15)
[2020-03-21 12:19] VITALS: BP 134/83; TEMP 98.4
[2020-03-21] MEDS ORDERED: Clindamycin 150 MG CAP PO SCH (13:00)
[2020-03-21] MEDS ORDERED: diphenhydrAMINE 12.5 MG/5 ML UDCUP PO PRN (21:00)
[2020-03-21] MEDS ORDERED: diphenhydrAMINE 25 MG CAP PO PRN (21:00)
== END 2020-03-21 15:12 | disposition home or self-care (01) | DRG 142 ==
LOC: ERS 15:53 → SURG A 20:58
PROVIDERS: ADMIT Surgery; ATTEND Surgery
PROC: 0NST04Z Reposition Right Mandible with Internal Fixation Device, Open Approach (ICD-10-PCS; principal; 2020-03-20)
PROC: 0CDXXZ0 Extraction of Lower Tooth, Single, External Approach (ICD-10-PCS; 2020-03-20)
DX: S02.609A Fracture of mandible, unspecified, initial encounter for closed fracture (principal); Y04.2XXA Assault by strike against or bumped into by another person, initial encounter; E10.9 Type 1 diabetes mellitus without complications; J45.909 Unspecified asthma, uncomplicated; I10 Essential (primary) hypertension; K21.9 Gastro-esophageal reflux disease without esophagitis; K02.9 Dental caries, unspecified; R00.0 Tachycardia, unspecified; Z88.8 Allergy status to other drugs, medicaments and biological substances; Z79.4 Long term (current) use of insulin
CPT/HCPCS: 36415; 36416; 70486; 71045; 80048; 80053; 83735; 84100; 84703; 85025; 93005; 93010; 96365; 96372; C1713; C9113; J0360; J1200; J1815; J1885; J2250; J2270; J2405; J2550; J2704; J3010; J3475; J3480; J3490; J7050; Q0163

== ENCOUNTER 2020-04-11 16:19 | Inpatient (IN) | payer OTHER ==
[~2020-04-11 16:19] MED LIST: Iopamidol 370 76% 100 ML VIAL ONE
[2020-04-11 17:49] LABS: Hemoglobin 11.5 g/dL (12.0-16.0); Mean Corpuscular HGB CONC 32.4 g/dL (32.0-36.0); Mean Corpuscular Hemoglobin 29.6 pg (27.0-31.0); Mean Corpuscular Volume 91.3 fL (78.0-98.0); Mean Platelet Volume 7.5 fL (7.4-10.4); Platelet Count 410 thou/uL (130-400); RBC Distribution Width 12.2 % (11.5-14.5); White Blood Cell (WBC) Count 19.4 thou/uL (4.8-10.8)
[2020-04-11 17:58] LABS: Bacteria/HPF 2+ HPF (None Seen); Bilirubin Negative (Negative); Blood, Urine 2+ (Negative); Clarity Extra Turbid (Clear); Glucose, Urine (Dipstick) 200 mg/dL (Negative); Ketone, Urine 10 mg/dL (Negative); Leukocyte 500 Leu/uL (Negative); Nitrite Negative (Negative); Protein, Urine (Dipstick) 200 mg/dL (Neg-Trace); RBC/HPF Greater than 50 HPF (0-3); Specific Gravity, Urine 1.015 (1.002-1.036); Urobilinogen Normal mg/dL (Less than 2); WBC/HPF Greater than 50 HPF (0-3)
[2020-04-11 18:09] LABS: BHCG - Serum Negative (NEGATIVE); Pregs Control Background? CLEAR/WHITE (CLR/WHITE); Pregs Control Bar Appear? YES (CONTROL BAR)
[2020-04-11 18:12] LABS: Band 11 % (5-11); Lymphocytes 4 % (21-51); MDiff Complete? YES; Monocytes 3 % (0-10); Neutrophil 82 % (42-75); Platelet Morphology Comment Appears Increased; RBC Morphology Normal
[2020-04-11 18:15] LABS: ALT (SGPT) 7 U/L (8-55); AST (SGOT) 11 U/L (5-34); Albumin 3.8 g/dL (3.5-5.0); Alkaline Phosphatase 152 U/L (40-110); Anion Gap 20 mmol/L (10-20); BUN (Urea Nitrogen) 21 mg/dL (7.0-18.7); Bilirubin, Total 0.4 mg/dL (0.2-1.2); Calc. Creatinine Clearance 0 mL/min (70-130); Calcium 9.6 mg/dL (7.8-10.44); Carbon Dioxide 19 mmol/L (22-29); Chloride 103 mmol/L (98-107); Glucose 260 mg/dL (70-105); Potassium 3.8 mmol/L (3.5-5.1); Protein, Total 8.8 g/dL (6.0-8.3); Sodium 138 mmol/L (136-145)
[2020-04-11] MEDS ORDERED: Acetaminophen 325 MG TAB ONE (18:23)
[2020-04-11] MEDS ORDERED: cefTRIAXone\\ROCEPHIN 2 GM VIAL ONE ×2 (18:47→18:48)
[2020-04-11 19:36] LABS: Base Excess-Venous -2.4 mmol/L (-2.0 to 3.0); Bicarbonate (HCO3v) 20.4 mmol/L (22.0-28.0); CO2 Tension (PvCO2) 28.2 mmHg (42.0-51.0); Calcium, Ionized 0.91 mmol/L (1.15-1.33); Chloride 103 mmol/L (98-107); Hemoglobin - Calc 10.8 g/dL (12.0-16.0); Potassium 3.7 mmol/L (3.5-5.1); Sodium 135 mmol/L (138-145); T. Carbon Dioxide 21.3 mmol/L (22.0-28.0); vO2 Saturation-calc 79.9 % (60.0-85.0)
--- NOTE | 2020-04-11 20:02 | CT ---
CT Abdomen Pelvis W Con: 04/11/2020 7:40 PM CLINICAL INFORMATION: Left flank pain with history of kidney stones COMPARISON: None. TECHNIQUE: Multiple contiguous axial images were obtained and a CT of the abdomen and pelvis with IV contrast. C oronal and sagittal reformats were performed. FINDINGS: Lower Chest: within normal limits. Abdomen: Liver: within normal limits. Bile Ducts: Normal caliber. Gallbladder: No calcified gallstones. Normal caliber wall. Pancreas: within normal limits. Spleen: within normal limits. Adrenals: within normal limits. Kidneys: There is a slightly abnormal enhancement pattern of both kidneys which could represent bilat eral pyelonephritis. No hydronephrosis is seen. Pelvis: Reproductive Organs: No pelvic masses. Ureters: There is mild prominence of the proximal left ureter. The ureter cannot be completely follow ed down into the urinary bladder as it is normal in caliber distally. Multiple phleboliths are seen in the pelvis. These appear to be external to the course of the ureter but a distal ureteral calcific ation cannot be entirely excluded. Bladder: There may be slight thickening of the wall of the urinary bladder. Peritoneum: No free air. There is a small amount of free fluid in the pelvis. Bowel: Normal caliber. Normal appendix. Mesentery and Retroperitoneum: There is one mildly prominent retroperitoneal lymph node measuring 1.5 cm in size. Vessels: Normal. Abdominal Wall: 1.7 cm fat-containing umbilical hernia Bones: Within normal limits IMPRESSION: 1. Abnormal enhancement pattern of both kidneys could be secondary to bilateral pyelonephritis. There is also circumferential thickening of the urinary bladder wall which could be secondary to cystitis. Correlate with urinalysis. 2. No obvious kidney stone or hydronephrosis are seen. There is slight prominence of the proximal lef t ureter without a delay in the left nephrogram to suggest an obstruction.
[2020-04-11] MEDS ORDERED: Morphine 2 MG/ML VIAL SLOW IVP PRN (22:15)
[2020-04-11] MEDS ORDERED: Morphine 2 MG/ML VIAL ONE (22:22)
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
[2020-04-12] MEDS ORDERED: Senokot S 8.6-50 MG TAB PO PRN (00:06)
[2020-04-12] MEDS ORDERED: Ondansetron ODT 4 MG TAB PO PRN (00:06)
[2020-04-12] MEDS ORDERED: Acetaminophen 325 MG TAB PO PRN (00:06)
[2020-04-12] MEDS ORDERED: Morphine 2 MG/ML VIAL SLOW IVP PRN (00:09)
[2020-04-12] MEDS ORDERED: Dextrose 50% Abboject 50 ML SYRINGE SLOW IVP PRN (00:10)
[2020-04-12] MEDS ORDERED: HumaLOG 300 UNITS/3 ML VIAL SC PRN (00:10)
[2020-04-12] MEDS ORDERED: Dextrose 5% in Water 1,000 ML IV PRN (00:10)
[2020-04-12] MEDS ORDERED: Famotidine 20 MG TAB PO SCH ×2 (00:30→09:00)
[2020-04-12] MEDS ORDERED: Insulin Glargine 20 UNITS in Pre-Filled Syringe 1 EACH SC SCH (00:30)
[2020-04-12] MEDS: Sodium Chloride 0.9% 1,000 ML IV SCH ×3 (00:35→21:19)
[2020-04-12] MEDS: Ondansetron PF 4 MG/2 ML Vial IVP PRN ×2 (00:38→14:26)
[2020-04-12] MEDS: HYDROcodone/Acetaminophen 5/325 mg Tablet PO SCH ×6 (00:48→21:20)
[2020-04-12] MEDS ORDERED: Pantoprazole 40 MG VIAL IVP SCH (01:00)
[2020-04-12] MEDS: HumaLOG 300 UNITS/3 ML VIAL SC PRN (01:38)
[2020-04-12 05:12] LABS: #Lymphocytes 1.4 thou/uL (1.20-3.40); #Monocytes 1.7 thou/uL (0.11-0.59); #Neutrophils 11.5 thou/uL (1.40-6.50); %Basophils 0.3 % (0.0-1.0); %Eosinophils 0.3 % (0.0-10.0); %Lymphocytes 9.7 % (21.0-51.0); %Monocytes 11.6 % (0.0-10.0); %Neutrophils 78.1 % (42.0-75.0); Hemoglobin 9.6 g/dL (12.0-16.0); Mean Corpuscular HGB CONC 32.5 g/dL (32.0-36.0); Mean Corpuscular Hemoglobin 29.8 pg (27.0-31.0); Mean Corpuscular Volume 91.6 fL (78.0-98.0); Mean Platelet Volume 7.3 fL (7.4-10.4); Platelet Count 356 thou/uL (130-400); RBC Distribution Width 12.3 % (11.5-14.5); Red Blood Cell (RBC) Count 3.22 mill/uL (4.20-5.40); White Blood Cell (WBC) Count 14.8 thou/uL (4.8-10.8)
[2020-04-12 05:39] LABS: Anion Gap 12 mmol/L (10-20); BUN (Urea Nitrogen) 16 mg/dL (7.0-18.7); Calc. Creatinine Clearance 0 mL/min (70-130); Carbon Dioxide 22 mmol/L (22-29); Chloride 107 mmol/L (98-107); Glucose 210 mg/dL (70-105); Potassium 3.9 mmol/L (3.5-5.1); Sodium 137 mmol/L (136-145)
[2020-04-12 08:54] LABS: SARS-CoV-2 PCR by NAA Not Detected (NotDetected)
[2020-04-12] MEDS ORDERED: Non-Formulary Item 1 EACH (Levemir Flexpen [Levemir Flexpen] 100 UNITS/ML Pen) SC SCH (09:00)
[2020-04-12] MEDS: HumaLOG 300 UNITS/3 ML VIAL SC SCH ×3 (09:42→17:28)
[2020-04-12] MEDS: Insulin Glargine 20 UNITS in Pre-Filled Syringe 1 EACH SC SCH ×2 (09:44→21:24)
--- NOTE | 2020-04-12 11:49 | PDOC.BPN ---
- Brief Progress Note [id number] dictated
--- NOTE | 2020-04-12 12:12 | PRG ---
DATE OF SERVICE: 04/12/2020 SUBJECTIVE: The patient is sitting in bed, still having pain in both flanks. She said that she vomited once earlier this morning, but overall she is feeling a little better. OBJECTIVE: GENERAL: The patient does not appear to be in acute distress. VITAL SIGNS: Temperature is 98.5, pulse is 108, respiratory rate is 18, blood pressure is 128/75, and oxygen saturation 98%. HEENT: Head; normocephalic, atraumatic. NECK: Supple. CHEST: Fair bilateral air entry. HEART: S1 and S2. Regular. ABDOMEN: Soft . GENITOURINARY: Suprapubic tenderness. Left flank tenderness. NEURO: Awake, alert. PSYCH: Unable to assess. EXTREMITIES: No clubbing. No cyanosis. LABORATORY DATA: WBCs 14.8, hemoglobin 9.6, and platelets 356. WBC count went down from 19.4 to 14.8. IMAGING DATA: CT of the abdomen showed abnormal enhancement of both kidneys, which could be secondary to bilateral pyelonephritis, cystitis. ASSESSMENT: 1. Sepsis without septic shock. 2. Acute pyelonephritis. 3. Diabetes mellitus, type 1. 4. Bipolar depression. 5. . PLAN: 1. Continue with IV fluid hydration. 2. Continue with IV antibiotics, awaiting culture results. 3. Possible discharge in a.m. if the patient continues to improve. Job ID: [id number]
--- NOTE | 2020-04-12 14:08 | PQF ---
Q52 2018 [facility] Updated: CLINICAL DOCUMENTATION CLARIFICATION FORM: Please check appropriate box(es): [/ ] Acute Renal Failure/DESEAN without Acute Tubular Necrosis (ATN) [ ] Other Etiology or underlying conditions related to the diagnosis of DESEAN: [ ] Sepsis without septic shock [ ] Other: [ ] Other diagnosis [ ] Unable to determine In addition, please specify: Present on Admission (POA): [ ] Yes [ ] No [ ] Unable to determine To be completed by CDI/Coding staff for physician review: Present Clinical Indicators - Signs / Symptoms / Labs Results and Location in Medical Record [x ] Abnormal labs (BUN, creatinine, K+, creatinine clearance, low GFR) 04/11 bun 21, creat 1.16, GFR 65 to 04/12 bun 16, creat 0.83, GFR >90 per labs Present Risk Factors Results and Location in Medical Record [ x ] Sepsis without septic shock; Pyelonephritis 04/11 H&P([facility]) Present Treatments Results and Location in Medical Record [x ] IV ?uid challenge result 2 liters NS per 04/11 orders [ x ] Daily BMP 04/11 orders CDS/Historic Site Administrator Signature: Justine Patton RN, CCDS Phone #: [phone] Date/Time: 04/12/2020 2:05 PM This is a permanent part of the Medical Record [facility]
[2020-04-12] MEDS: cefTRIAXone\\ROCEPHIN 1 GM in Sodium Chloride 0.9% 100 ML IVPB SCH (18:07)
[2020-04-12] MEDS ORDERED: Promethazine HCl 25 MG/ML VIAL IM/IV SCH (18:30)
[2020-04-12] MEDS ORDERED: Ketorolac Tromethamine 30 MG/ML VIAL IVP SCH (18:30)
[2020-04-12] MEDS ORDERED: Promethazine HCl 25 MG in Sodium Chloride 0.9% 50 ML IVPB PRN (21:59)
[2020-04-13] MEDS: HYDROcodone/Acetaminophen 5/325 mg Tablet PO SCH ×6 (00:57→20:37)
[2020-04-13] MEDS: Sodium Chloride 0.9% 1,000 ML IV SCH ×2 (07:18→17:51)
[2020-04-13 07:36] LABS: #Basophils 0.1 thou/uL (0.0-0.2); #Eosinphils 0.2 thou/uL (0.0-0.7); #Lymphocytes 1.7 thou/uL (1.20-3.40); #Neutrophils 8.5 thou/uL (1.40-6.50); %Basophils 0.5 % (0.0-1.0); %Eosinophils 1.7 % (0.0-10.0); %Lymphocytes 14.7 % (21.0-51.0); %Monocytes 8.5 % (0.0-10.0); %Neutrophils 74.7 % (42.0-75.0); Hemoglobin 10.5 g/dL (12.0-16.0); Mean Corpuscular HGB CONC 32.6 g/dL (32.0-36.0); Mean Corpuscular Hemoglobin 30.1 pg (27.0-31.0); Mean Corpuscular Volume 92.4 fL (78.0-98.0); Platelet Count 381 thou/uL (130-400); RBC Distribution Width 12.4 % (11.5-14.5); White Blood Cell (WBC) Count 11.4 thou/uL (4.8-10.8)
[2020-04-13 07:50] LABS: Anion Gap 12 mmol/L (10-20); BUN (Urea Nitrogen) 10 mg/dL (7.0-18.7); Calc. Creatinine Clearance 0 mL/min (70-130); Calcium 8.1 mg/dL (7.8-10.44); Carbon Dioxide 23 mmol/L (22-29); Chloride 109 mmol/L (98-107); Glucose 121 mg/dL (70-105); Potassium 3.8 mmol/L (3.5-5.1); Sodium 140 mmol/L (136-145)
[2020-04-13] MEDS: HumaLOG 300 UNITS/3 ML VIAL SC SCH ×3 (08:36→17:55)
[2020-04-13] MEDS: Insulin Glargine 20 UNITS in Pre-Filled Syringe 1 EACH SC SCH ×2 (08:41→20:36)
--- NOTE | 2020-04-13 15:44 | PDOC.BPN ---
- Brief Progress Note [id number] Progress note dictated
--- NOTE | 2020-04-13 17:01 | PRG ---
DATE OF SERVICE: 04/13/2020 SUBJECTIVE: The patient is sitting in bed. She is still complaining of nausea and vomiting as she stated that she is unable to go home because she will not be able to take her medications because of the vomiting. Although, her vital signs has been stable, febrile and her white cell count is trending down. Urine culture is showing E coli, still sensitivities are not available. OBJECTIVE: GENERAL: The patient is awake, alert, in mild distress. VITAL SIGNS: Blood pressure is 138/76, temperature 98.7, pulse is 95, respiratory rate is 18, and oxygen saturations 99% on room air. HEENT: Head; normocephalic, atraumatic. NECK: Supple. No JVD. CHEST: Fair bilateral air entry. HEART: S1 and S2. Regular. ABDOMEN: Soft. Mild flank tenderness. Bowel sounds present. NEURO: Awake, alert, and oriented. PSYCH: Unable to assess. EXTREMITIES: No clubbing. No cyanosis. LABORATORY DATA: WBC count 11.4, hemoglobin 10.5, and platelets 381. Sodium 140, potassium 3.8, BUN is 10, creatinine 0.7, and glucose 131. ASSESSMENT: 1. Sepsis, rule out septic shock. 2. Acute pyelonephritis. 3. Diabetes mellitus, type 2. 4. Bipolar depression. PLAN: We will monitor the patient one more night in the hospital. She is still not feeling well. She is still complaining of vomiting, although overall she is improving with her being afebrile and her white cell count is trending down. We will continue with current medications on IV fluids, with possible discharge in a.m. if her symptoms improve. Job ID: [id number]
[2020-04-13] MEDS ORDERED: Calcium Carbonate 500 MG ChewTAB PO PRN (17:21)
[2020-04-13] MEDS: cefTRIAXone\\ROCEPHIN 1 GM in Sodium Chloride 0.9% 100 ML IVPB SCH (18:28)
[2020-04-13] MEDS: HumaLOG 300 UNITS/3 ML VIAL SC PRN (20:37)
[2020-04-14] MEDS: HYDROcodone/Acetaminophen 5/325 mg Tablet PO SCH ×3 (00:43→09:40)
[2020-04-14] MEDS: Sodium Chloride 0.9% 1,000 ML IV SCH (03:54)
[2020-04-14 06:44] VITALS: BP 142/88; TEMP 98.8
[2020-04-14] MEDS: HumaLOG 300 UNITS/3 ML VIAL SC SCH (08:23)
[2020-04-14] MEDS: Insulin Glargine 20 UNITS in Pre-Filled Syringe 1 EACH SC SCH (09:42)
--- NOTE | 2020-04-14 10:24 | PDOC.BPN ---
- Brief Progress Note [id number] Discharge summary dictated
--- NOTE | 2020-04-15 07:52 | DIS ---
DATE OF ADMISSION: 04/11/2020 DATE OF DISCHARGE: 04/14/2020 DISCHARGE DIAGNOSES: 1. Sepsis secondary to acute pyelonephritis, resolved. 2. Acute pyelonephritis. 3. Bipolar depression. 4. Asthma. BRIEF HOSPITAL COURSE: Ms. Wan is a 34-year-old female with history of type 1 diabetes mellitus, who presented to the emergency room with flank pain, more on the left side associated with nausea and vomiting for 1 week prior to presentation. The patient also endorses cloudy and malodorous urine. On workup in the emergency room, the patient was found to be septic with tachycardia with heart rate as high as 140. She also had a temperature of 101.4. The patient was found to have bilateral pyelonephritis. Urine culture grew E coli, which was sensitive to ceftriaxone and Cipro. The patient was treated with IV ceftriaxone. Fever and tachycardia improved. Also, the patient's nausea and vomiting has been improving. The patient resumed diabetic diet this morning and she tolerated the diet. The patient wants to go home. PHYSICAL EXAMINATION: GENERAL: Today, the patient is awake, alert, does not appear to be in any distress. VITAL SIGNS: Blood pressure 120/70, heart rate is 88, respiratory rate is 14, and temperature is 98.6. HEENT: Head; normocephalic, atraumatic. NECK: Supple. No JVD. CHEST: Fair bilateral air entry. HEART: S1 and S2. Regular. ABDOMEN: Soft, nontender. Bowel sounds present. NEURO: Awake, alert, and oriented. PSYCH: Normal mood. EXTREMITIES: No clubbing. No cyanosis. ASSESSMENT: 1. Sepsis secondary to pyelonephritis. 2. Acute pyelonephritis. 3. Bipolar depression. 4. Asthma. 5. Diabetes mellitus, type 1. PLAN: The patient to be discharged home. We will continue the oral antibiotics, Cipro for the next week. The patient to resume her home medications including insulin. The patient to follow with her primary care physician as early as possible. The patient was instructed to report back to the emergency room if she starts having fever, flank pain, nausea, or vomiting. The patient was discharged in stable condition. ACTIVITY: As tolerated. DIET: Diabetic diet. Time spent in discharging the patient, 35 minutes. Job ID: [id number]
== END 2020-04-14 11:35 | disposition home or self-care (01) | DRG 872 ==
LOC: ERS 16:19 → ONC 20:49
PROVIDERS: ADMIT Internal Medicine; ATTEND Internal Medicine
DX: A41.9 Sepsis, unspecified organism (principal); N10 Acute pyelonephritis; N17.9 Acute kidney failure, unspecified; E10.9 Type 1 diabetes mellitus without complications; I10 Essential (primary) hypertension; F31.9 Bipolar disorder, unspecified; Z98.51 Tubal ligation status; Z88.8 Allergy status to other drugs, medicaments and biological substances; Z87.442 Personal history of urinary calculi; Z79.4 Long term (current) use of insulin; J45.909 Unspecified asthma, uncomplicated; Z20.822 Contact with and (suspected) exposure to COVID-19; B96.20 Unspecified Escherichia coli [E. coli] as the cause of diseases classified elsewhere
CPT/HCPCS: 36415; 36416; 74177; 80048; 80053; 81003; 81015; 82330; 82803; 83605; 84703; 85025; 87040; 87077; 87086; 87186; 87635; 93005; 96365; 96375; C9113; J0696; J1815; J1885; J2270; J2405; J2550; J3490; Q9967; U0003; U0005

== ENCOUNTER 2021-01-20 06:36 | Emergency (ER) | payer OTHER ==
[2021-01-20] MEDS ORDERED: Acetaminophen 500 MG TAB ONE (07:42)
[2021-01-20] MEDS ORDERED: Ketorolac Tromethamine 30 MG/ML VIAL ONE (08:20)
== END 2021-01-20 08:30 | disposition home or self-care (01) ==
LOC: ERS 06:36
DX: M79.604 Pain in right leg (principal); M79.605 Pain in left leg; E10.9 Type 1 diabetes mellitus without complications; I10 Essential (primary) hypertension; J45.909 Unspecified asthma, uncomplicated; F17.200 Nicotine dependence, unspecified, uncomplicated; Z79.4 Long term (current) use of insulin; Z79.899 Other long term (current) drug therapy
CPT/HCPCS: 93970; 96372; J1885

== ENCOUNTER 2021-01-28 07:56 | Emergency (ER) | payer OTHER ==
[2021-01-28 08:38] LABS: #Eosinphils 0.2 thou/uL (0.0-0.7); #Lymphocytes 1.1 thou/uL (1.20-3.40); #Monocytes 0.5 thou/uL (0.11-0.59); #Neutrophils 4.7 thou/uL (1.40-6.50); %Basophils 0.5 % (0.0-1.0); %Eosinophils 2.8 % (0.0-10.0); %Lymphocytes 16.7 % (21.0-51.0); %Monocytes 8.3 % (0.0-10.0); %Neutrophils 71.6 % (42.0-75.0); Mean Corpuscular HGB CONC 33.5 g/dL (32.0-36.0); Mean Corpuscular Hemoglobin 31.7 pg (27.0-31.0); Mean Corpuscular Volume 94.7 fL (78.0-98.0); Platelet Count 273 thou/uL (130-400); RBC Distribution Width 12.2 % (11.5-14.5); Red Blood Cell (RBC) Count 4.09 mill/uL (4.20-5.40); White Blood Cell (WBC) Count 6.6 thou/uL (4.8-10.8)
[2021-01-28 08:56] LABS: ALT (SGPT) 8 U/L (8-55); AST (SGOT) 9 U/L (5-34); Albumin 3.6 g/dL (3.5-5.0); Alkaline Phosphatase 58 U/L (40-110); Anion Gap 13 mmol/L (10-20); BUN (Urea Nitrogen) 13 mg/dL (7.0-18.7); Bilirubin, Total 0.6 mg/dL (0.2-1.2); Calc. Creatinine Clearance 0 mL/min (70-130); Calcium 9.2 mg/dL (7.8-10.44); Carbon Dioxide 24 mmol/L (22-29); Chloride 103 mmol/L (98-107); Globulin 3.5 g/dL (2.4-3.5); Glucose 272 mg/dL (70-105); Potassium 4.6 mmol/L (3.5-5.1); Protein, Total 7.1 g/dL (6.0-8.3); Sodium 135 mmol/L (136-145)
[2021-01-28] MEDS ORDERED: Iopamidol-370 76% 500 ML 1 ML ONE (10:26)
[2021-01-28] MEDS ORDERED: Albuterol 200 PUFF (6.7GM INHALER) ONE (10:33)
[2021-01-28 18:18] LABS: SARS-CoV-2 PCR by NAA Not Detected (NotDetected)
== END 2021-01-28 11:39 | disposition home or self-care (01) ==
LOC: ERS 07:56
DX: J06.9 Acute upper respiratory infection, unspecified (principal); H92.03 Otalgia, bilateral; R00.0 Tachycardia, unspecified; Z20.822 Contact with and (suspected) exposure to COVID-19; E10.9 Type 1 diabetes mellitus without complications; I10 Essential (primary) hypertension; J45.909 Unspecified asthma, uncomplicated; Z79.4 Long term (current) use of insulin; Z79.899 Other long term (current) drug therapy
CPT/HCPCS: 36415; 36416; 71045; 71275; 80053; 85025; 87081; 87430; 93005; 94664; Q9967; U0003; U0005

== ENCOUNTER 2021-10-07 15:31 | Emergency (ER) | payer OTHER ==
[2021-10-07] MEDS ORDERED: Fluorescein Opthalmic Strip ONE (15:49)
[2021-10-07] MEDS ORDERED: Proparacaine 0.5% Opth 15 ML BOT ONE (15:49)
== END 2021-10-07 17:05 | disposition home or self-care (01) ==
LOC: ERS 15:31
DX: S05.02XA Injury of conjunctiva and corneal abrasion without foreign body, left eye, initial encounter (principal); E10.9 Type 1 diabetes mellitus without complications; I10 Essential (primary) hypertension; Z79.4 Long term (current) use of insulin; X58.XXXA Exposure to other specified factors, initial encounter
CPT/HCPCS: 99283

== ENCOUNTER 2022-02-04 16:49 | Emergency (ER) | payer OTHER ==
[2022-02-04] MEDS ORDERED: Ondansetron PF 4 MG/2 ML Vial ONE (17:07)
[2022-02-04 17:33] LABS: #Eosinphils 0.3 thou/uL (0.0-0.7); #Lymphocytes 1.8 thou/uL (1.20-3.40); #Monocytes 0.3 thou/uL (0.11-0.59); %Basophils 0.6 % (0.0-1.0); %Eosinophils 4.1 % (0.0-10.0); %Lymphocytes 23.9 % (21.0-51.0); %Monocytes 3.8 % (0.0-10.0); %Neutrophils 67.6 % (42.0-75.0); Hemoglobin 13.9 g/dL (12.0-16.0); Mean Corpuscular HGB CONC 34.3 g/dL (32.0-36.0); Mean Corpuscular Hemoglobin 32.1 pg (27.0-31.0); Mean Corpuscular Volume 93.4 fl (78.0-98.0); Mean Platelet Volume 7.4 fL (7.4-10.4); Platelet Count 273 10x3/uL (130-400); RBC Distribution Width 11.6 % (11.5-14.5); Red Blood Cell (RBC) Count 4.34 mill/uL (4.20-5.40); White Blood Cell (WBC) Count 7.4 10x3/uL (4.8-10.8)
[2022-02-04 17:38] LABS: Actual Bicarbonate (HCO3v) 18 mEq/L (22-28); Analyzer IN Cardio ER; Chloride (VBG) 100 mmol/L (98-106); Hemoglobin (Hb) 14.6 g/dL (11.7-15.5); Sodium 134.9 mmol/L (133-146)
[2022-02-04 17:44] LABS: BHCG - Serum Negative (NEGATIVE); Pregs Control Background? CLEAR/WHITE (CLR/WHITE); Pregs Control Bar Appear? YES (CONTROL BAR)
[2022-02-04 17:51] LABS: Magnesium 1.9 mg/dL (1.6-2.6)
[2022-02-04 17:52] LABS: ALT (SGPT) 10 U/L (8-55); AST (SGOT) 12 U/L (5-34); Albumin 4.5 g/dL (3.5-5.0); Alkaline Phosphatase 83 U/L (40-110); Anion Gap 20 mmol/L (10-20); BUN (Urea Nitrogen) 14 mg/dL (7.0-18.7); Bilirubin, Total 0.4 mg/dL (0.2-1.2); Calc. Creatinine Clearance 0 mL/min (70-130); Calcium 9.6 mg/dL (7.8-10.44); Carbon Dioxide 19 mmol/L (22-29); Chloride 100 mmol/L (98-107); Estimated GFR 64; Globulin 4.2 g/dL (2.4-3.5); Phosphorus 3.3 mg/dL (2.3-4.7); Potassium 4.2 mmol/L (3.5-5.1); Protein, Total 8.7 g/dL (6.0-8.3); Sodium 135 mmol/L (136-145)
[2022-02-04 17:57] LABS: Glucose 451 mg/dL (70-105)
[2022-02-04] MEDS ORDERED: Insulin Regular 300 UNITS/3 ML VIAL ONE (18:29)
[2022-02-04 20:25] LABS: Anion Gap 16 mmol/L (10-20); BUN (Urea Nitrogen) 12 mg/dL (7.0-18.7); Calc. Creatinine Clearance 0 mL/min (70-130); Calcium 8.4 mg/dL (7.8-10.44); Carbon Dioxide 16 mmol/L (22-29); Chloride 109 mmol/L (98-107); Estimated GFR 96; Glucose 233 mg/dL (70-105); Potassium 3.6 mmol/L (3.5-5.1); Sodium 137 mmol/L (136-145)
== END 2022-02-04 20:42 | disposition home or self-care (01) ==
LOC: ERS 16:49
DX: E10.65 Type 1 diabetes mellitus with hyperglycemia (principal); I10 Essential (primary) hypertension
CPT/HCPCS: 36415; 71045; 80053; 82010; 82805; 83735; 84100; 84484; 84703; 85025; 93005; 96361; 96374; 96375; J1815; J2405

== ENCOUNTER 2022-06-28 13:54 | Outpatient (CLI) | payer OTHER | END 2022-06-28 13:55 | disposition home or self-care (01) | LOC: BICRAD 13:54 | PROVIDERS: ATTEND Nurse Practitioner Family | DX: R05.3 Chronic cough (principal) | CPT/HCPCS: 71046 ==

== ENCOUNTER 2022-12-23 11:52 | Emergency (ER) | payer OTHER, SELFPAY ==
[2022-12-23 12:17] LABS: Bilirubin Negative (Negative); Blood, Urine Negative (Negative); Glucose, Urine (Dipstick) >=1000 mg/dL (Negative); Ketone, Urine > or equal to 80 mg/dL (Negative); Leukocyte Negative (Negative); Nitrite Negative (Negative); Protein, Urine (Dipstick) Negative (Neg-Trace); Specific Gravity, Urine 1.015 (1.005-1.030); Urobilinogen 0.2 mg/dL (Less than 2)
[2022-12-23 12:18] LABS: Clarity Clear (Clear); Pregnancy Test - Urine (BHCG) Negative (Negative); Pregu Control Background? CLEAR/WHITE (CLR/WHITE); Pregu Control Bar Appear? YES (CONTROL BAR); Specific Gravity 1.015 (1.002-1.036)
[2022-12-23 12:22] LABS: #Basophils 0.1 thou/uL (0.0-0.2); #Eosinphils 0.1 thou/uL (0.0-0.7); #Monocytes 0.3 thou/uL (0.11-0.59); #Neutrophils 7.9 thou/uL (1.40-6.50); %Basophils 0.6 % (0.0-1.0); %Eosinophils 1.2 % (0.0-10.0); %Lymphocytes 15.3 % (21.0-51.0); %Monocytes 3.4 % (0.0-10.0); %Neutrophils 79.2 % (42.0-75.0); Hematocrit 38.5 % (36.0-47.0); Hemoglobin 12.9 g/dL (12.0-16.0); Mean Corpuscular HGB CONC 33.5 g/dL (32.0-36.0); Mean Corpuscular Hemoglobin 31.1 pg (27.0-31.0); Mean Corpuscular Volume 92.8 fl (78.0-98.0); Mean Platelet Volume 9.4 fL (7.4-10.4); Platelet Count 297 10x3/uL (130-400); RBC Distribution Width 13.3 % (11.5-14.5); Red Blood Cell (RBC) Count 4.15 mill/uL (4.20-5.40); White Blood Cell (WBC) Count 9.9 10x3/uL (4.8-10.8)
[2022-12-23 12:46] LABS: ALT (SGPT) 15 U/L (8-55); AST (SGOT) 13 U/L (5-34); Alkaline Phosphatase 106 U/L (40-110); Anion Gap 21 mmol/L (10-20); BUN (Urea Nitrogen) 11 mg/dL (7.0-18.7); Bilirubin, Total 0.3 mg/dL (0.2-1.2); Calc. Creatinine Clearance 0 mL/min (70-130); Calcium 9.5 mg/dL (7.8-10.44); Carbon Dioxide 21 mmol/L (22-29); Chloride 99 mmol/L (98-107); Estimated GFR 73; Globulin 3.8 g/dL (2.4-3.5); Glucose 194 mg/dL (70-105); Lipase 10 U/L (8-78); Potassium 4.2 mmol/L (3.5-5.1); Protein, Total 7.8 g/dL (6.0-8.3); Sodium 137 mmol/L (136-145)
[2022-12-23 13:08] LABS: Bacteria/HPF Rare-Few HPF (None Seen); CAUTI Indications for Culture Dysuria,urgency,freq; RBC/HPF 0-3 HPF (0-3); WBC/HPF None Seen HPF (0-3)
[2022-12-23 13:09] LABS: Urine Culture Reflex No No
[2022-12-23 14:39] LABS: Actual Bicarbonate (HCO3v) 23.6 mEq/L (22-28); Base Excess -1.6 mEq/L (-2.0 to +3.0); Calcium, Ionized (venous) 1.13 mmol/L (1.16-1.32); Chloride (VBG) 99 mmol/L (98-106); Hematocrit-VBG 41 % (36.0-47.0); Hemoglobin (Hb) 14.1 g/dL (11.7-15.5); Potassium (VBG) 3.93 mmol/L (3.70-5.30); Sodium 136 mmol/L (133-146); pH (venous) 7.375 (7.32-7.43)
[2022-12-23 14:48] LABS: Troponin I Less than 0.010 ng/mL (< 0.028)
[2022-12-23 15:22] LABS: Magnesium 1.9 mg/dL (1.6-2.6)
== END 2022-12-23 18:10 | disposition home or self-care (01) ==
LOC: ERS 11:52
DX: E10.43 Type 1 diabetes mellitus with diabetic autonomic (poly)neuropathy (principal); R07.9 Chest pain, unspecified; E86.0 Dehydration; R11.2 Nausea with vomiting, unspecified; E87.20 Acidosis, unspecified; I10 Essential (primary) hypertension
CPT/HCPCS: 36415; 36416; 80053; 81001; 81025; 82010; 82805; 83605; 83690; 83735; 84484; 85025; 96360; 96361

== ENCOUNTER 2022-12-25 20:38 | Inpatient (IN) | payer BC, SELFPAY ==
[2022-12-25] MEDS ORDERED: Ondansetron PF 4 MG/2 ML Vial ONE (21:34)
[2022-12-25 21:35] LABS: Base Excess -12.7 mEq/L (-2.0 to +3.0); Calcium, Ionized (venous) 1.15 mmol/L (1.16-1.32); Chloride (VBG) 97 mmol/L (98-106); Hematocrit-VBG 39 % (36.0-47.0); Hemoglobin (Hb) 13.3 g/dL (11.7-15.5); Sodium 132 mmol/L (133-146); pH (venous) 7.224 (7.32-7.43)
[2022-12-25 21:36] LABS: Actual Bicarbonate (HCO3v) 13.9 mEq/L (22-28); Potassium (VBG) 6.92 mmol/L (3.70-5.30)
[2022-12-25 21:50] LABS: #Basophils 0.1 thou/uL (0.0-0.2); #Eosinphils 0.1 thou/uL (0.0-0.7); #Monocytes 0.3 thou/uL (0.11-0.59); #Neutrophils 7.4 thou/uL (1.40-6.50); %Basophils 0.7 % (0.0-1.0); %Eosinophils 0.5 % (0.0-10.0); %Monocytes 3.1 % (0.0-10.0); %Neutrophils 81.2 % (42.0-75.0); Hematocrit 35.9 % (36.0-47.0); Hemoglobin 11.9 g/dL (12.0-16.0); Mean Corpuscular HGB CONC 33.1 g/dL (32.0-36.0); Mean Corpuscular Hemoglobin 31.5 pg (27.0-31.0); Mean Platelet Volume 10.4 fL (7.4-10.4); Platelet Count 275 10x3/uL (130-400); RBC Distribution Width 14.1 % (11.5-14.5); Red Blood Cell (RBC) Count 3.78 mill/uL (4.20-5.40); White Blood Cell (WBC) Count 9.2 10x3/uL (4.8-10.8)
[2022-12-25 22:10] LABS: BHCG - Serum Negative (NEGATIVE); Pregs Control Background? CLEAR/WHITE (CLR/WHITE); Pregs Control Bar Appear? YES (CONTROL BAR)
[2022-12-25 22:23] LABS: Bacteria/HPF None Seen HPF (None Seen); Bilirubin Negative (Negative); Blood, Urine Negative (Negative); CAUTI Indications for Culture Pelvic or flank pain; Clarity Clear (Clear); Glucose, Urine (Dipstick) Greater than 1000 mg/dL (Negative); Ketone, Urine Greater than 150 mg/dL (Negative); Leukocyte Negative Leu/uL (Negative); Nitrite Negative (Negative); Protein, Urine (Dipstick) Negative (Neg-Trace); RBC/HPF 0-3 HPF (0-3); Squamous Epithelial 0-3 HPF (0-3); Urobilinogen Normal mg/dL (Less than 2); WBC/HPF 0-3 HPF (0-3)
[2022-12-25 22:24] LABS: Urine Culture Reflex No No
[2022-12-25] MEDS ORDERED: Famotidine/PF 20 mg/2ml Vial ONE (23:09)
[2022-12-25] MEDS ORDERED: Metoclopramide HCl 10 MG/2 ML VIAL ONE (23:09)
[2022-12-25 23:40] LABS: ALT (SGPT) 15 U/L (8-55); AST (SGOT) 17 U/L (5-34); Alkaline Phosphatase 102 U/L (40-110); Anion Gap 28 mmol/L (10-20); BUN (Urea Nitrogen) 17 mg/dL (7.0-18.7); Bilirubin, Total 0.4 mg/dL (0.2-1.2); Calc. Creatinine Clearance 0 mL/min (70-130); Chloride 102 mmol/L (98-107); Estimated GFR 48; Globulin 3.6 g/dL (2.4-3.5); Lipase 5 U/L (8-78); Potassium 5.1 mmol/L (3.5-5.1); Protein, Total 7.6 g/dL (6.0-8.3); Sodium 134 mmol/L (136-145)
[2022-12-25 23:42] LABS: Phosphorus 4.4 mg/dL (2.3-4.7)
[2022-12-25 23:48] LABS: Carbon Dioxide 9 mmol/L (22-29); Glucose 582 mg/dL (70-105)
[2022-12-25 23:53] LABS: Troponin I Less than 0.010 ng/mL (< 0.028)
[2022-12-26] MEDS ORDERED: Electrolyte Replacement Protocol 1 EACH IVPB SCH (00:09)
[2022-12-26] MEDS ORDERED: Dextrose 5 %-0.45 % NaCl 1,000 ML IV PRN (00:09)
[2022-12-26] MEDS ORDERED: NS 0.9% w/ 20 MEQ KCL 1,000 ML IV PRN ×2 (00:09)
[2022-12-26] MEDS ORDERED: Sodium Chloride 0.9% 1,000 ML IV PRN ×4 (00:09)
[2022-12-26] MEDS ORDERED: Dextrose 50% Abboject 50 ML SYRINGE SLOW IVP PRN ×2 (00:09→11:04)
[2022-12-26] MEDS ORDERED: Ondansetron PF 4 MG/2 ML Vial IVP PRN (00:09)
[2022-12-26] MEDS ORDERED: Acetaminophen 325 MG TAB PO PRN (00:09)
[2022-12-26] MEDS ORDERED: HUMULIN R 100 UNITS in Sodium Chloride 0.9% 100 ML IVPB SCH (00:15)
[2022-12-26] MEDS ORDERED: INSULIN REGULAR IN 0.9 % NACL 100 UNITS/100 ML BAG ONE (00:31)
[2022-12-26] MEDS ORDERED: HumaLOG 300 UNITS/3 ML VIAL ONE (00:31)
[2022-12-26] MEDS ORDERED: Insulin Regular 300 UNITS/3 ML VIAL ONE (00:33)
[2022-12-26 01:12] LABS: Amphetamine Not Detected (NotDetected); Barbiturates Screen Not Detected (NotDetected); Benzodiazepine Screen Not Detected (NotDetected); Cocaine Metabolite Screen Not Detected (NotDetected); Methadone Not Detected (NotDetected); Methamphetamine Not Detected (NotDetected); Opiate Screen Not Detected (NotDetected); Oxycodone Screen Not Detected (NotDetected); Phencyclidine (PCP) Not Detected (NotDetected); THC/Cannabinoid Screen Not Detected (NotDetected); Tricyclic Screen Not Detected (NotDetected)
[2022-12-26 02:10] VITALS: BMI 25.4
[2022-12-26] MEDS ORDERED: Promethazine HCl 12.5 MG in Sodium Chloride 0.9% 50 ML IVPB PRN (02:19)
[2022-12-26] MEDS: D5 1/2 NS w/20 mEq KCL 1,000 ML IV PRN ×2 (04:40→07:01)
[2022-12-26 04:54] LABS: SARS-CoV-2 NAA Rapid Test Not Detected (NotDetected)
[2022-12-26 06:47] LABS: Anion Gap 21 mmol/L (10-20); BUN (Urea Nitrogen) 17 mg/dL (7.0-18.7); Calc. Creatinine Clearance 60 mL/min (70-130); Calcium 8.8 mg/dL (7.6-10.4); Carbon Dioxide 10 mmol/L (22-29); Chloride 113 mmol/L (98-107); Estimated GFR 53; Glucose 180 mg/dL (70-105); Sodium 140 mmol/L (136-145)
[2022-12-26] MEDS ORDERED: Magnesium 2 GM/50 ML(in water) 2 GM in Premix 1 BAG IVPB SCH (08:00)
[2022-12-26] MEDS ORDERED: FLU VACC QS2023-24(6MOS UP)/PF 60 MCG/0.5 ML SYRINGE IM ONE (09:00)
[2022-12-26 10:22] LABS: Anion Gap 13 mmol/L (10-20); BUN (Urea Nitrogen) 14 mg/dL (7.0-18.7); Calc. Creatinine Clearance 65 mL/min (70-130); Calcium 8.6 mg/dL (7.8-10.44); Carbon Dioxide 19 mmol/L (22-29); Chloride 111 mmol/L (98-107); Estimated GFR 58; Glucose 166 mg/dL (70-105); Potassium 4.3 mmol/L (3.5-5.1); Sodium 139 mmol/L (136-145)
[2022-12-26] MEDS ORDERED: Glucagon 1 MG/ML KIT IM PRN (11:04)
[2022-12-26] MEDS ORDERED: Dextrose 5% in Water 1,000 ML IV PRN (11:04)
[2022-12-26] MEDS ORDERED: Insulin Regular 300 UNITS/3 ML VIAL SC PRN (11:04)
[2022-12-26] MEDS ORDERED: Insulin Glargine 30 UNITS/0.3 ML VIAL SC SCH (11:15)
[2022-12-26 12:43] LABS: Anion Gap 11 mmol/L (10-20); BUN (Urea Nitrogen) 13 mg/dL (7.0-18.7); Calc. Creatinine Clearance 74 mL/min (70-130); Calcium 8.4 mg/dL (7.8-10.44); Carbon Dioxide 21 mmol/L (22-29); Chloride 111 mmol/L (98-107); Estimated GFR 68; Glucose 176 mg/dL (70-105); Potassium 4.5 mmol/L (3.5-5.1); Sodium 138 mmol/L (136-145)
[2022-12-26 17:20] VITALS: TEMP 98.2
[2022-12-27] MEDS ORDERED: Insulin Glargine 30 UNITS/0.3 ML VIAL SC SCH (09:00)
== END 2022-12-26 19:11 | disposition home or self-care (01) | DRG 638 ==
LOC: ERS 20:38 → IMCU/EMU 12-26 00:09
PROVIDERS: ADMIT Internal Medicine; ATTEND Internal Medicine
DX: E10.10 Type 1 diabetes mellitus with ketoacidosis without coma (principal); N17.9 Acute kidney failure, unspecified; I10 Essential (primary) hypertension; F31.9 Bipolar disorder, unspecified; F12.129 Cannabis abuse with intoxication, unspecified; K21.9 Gastro-esophageal reflux disease without esophagitis; J45.20 Mild intermittent asthma, uncomplicated; Z20.822 Contact with and (suspected) exposure to COVID-19; Z79.4 Long term (current) use of insulin; Z79.899 Other long term (current) drug therapy; Z88.8 Allergy status to other drugs, medicaments and biological substances; Z98.51 Tubal ligation status; Z98.890 Other specified postprocedural states
CPT/HCPCS: 36415; 36416; 80048; 80053; 80306; 81001; 82010; 82805; 83036; 83605; 83690; 83735; 84100; 84484; 84703; 85025; 93005; 96361; 96365; 96375; 96376; J1815; J2405; J2550; J2765; J3475; J3480; J7050; S0028; U0002

== ENCOUNTER 2023-04-08 11:39 | Emergency (ER) | payer BC, OTHER, SELFPAY ==
[2023-04-08 12:19] LABS: #Basophils 0.1 thou/uL (0.0-0.2); #Eosinphils 0.2 thou/uL (0.0-0.7); #Monocytes 0.4 thou/uL (0.11-0.59); #Neutrophils 2.9 thou/uL (1.40-6.50); %Basophils 0.9 % (0.0-1.0); %Eosinophils 2.8 % (0.0-10.0); %Lymphocytes 37.2 % (21.0-51.0); %Monocytes 6.6 % (0.0-10.0); %Neutrophils 52.3 % (42.0-75.0); Hematocrit 37.4 % (36.0-47.0); Hemoglobin 12.1 g/dL (12.0-16.0); Mean Corpuscular HGB CONC 32.4 g/dL (32.0-36.0); Mean Corpuscular Hemoglobin 30.6 pg (27.0-31.0); Mean Corpuscular Volume 94.7 fl (78.0-98.0); Mean Platelet Volume 9.3 fL (7.4-10.4); Platelet Count 328 10x3/uL (130-400); RBC Distribution Width 13.4 % (11.5-14.5); Red Blood Cell (RBC) Count 3.95 mill/uL (4.20-5.40); White Blood Cell (WBC) Count 5.6 10x3/uL (4.8-10.8)
[2023-04-08 12:43] LABS: ALT (SGPT) 38 U/L (8-55); AST (SGOT) 28 U/L (5-34); Albumin 3.9 g/dL (3.5-5.0); Alkaline Phosphatase 82 U/L (40-110); Anion Gap 13 mmol/L (10-20); BUN (Urea Nitrogen) 11 mg/dL (7.0-18.7); Bilirubin, Total 0.4 mg/dL (0.2-1.2); Calc. Creatinine Clearance 0 mL/min (70-130); Calcium 9.6 mg/dL (7.8-10.44); Carbon Dioxide 23 mmol/L (22-29); Chloride 101 mmol/L (98-107); Estimated GFR 75; Globulin 3.7 g/dL (2.4-3.5); Glucose 337 mg/dL (70-105); Potassium 4.1 mmol/L (3.5-5.1); Protein, Total 7.6 g/dL (6.0-8.3); Sodium 133 mmol/L (136-145)
[2023-04-08 14:11] LABS: Troponin I Less than 0.010 ng/mL (< 0.028)
[2023-04-08] MEDS ORDERED: Ibuprofen 800 MG TAB ONE (15:44)
== END 2023-04-08 15:57 | disposition home or self-care (01) ==
LOC: ERS 11:39
DX: B35.1 Tinea unguium (principal); M79.89 Other specified soft tissue disorders; I10 Essential (primary) hypertension; E10.9 Type 1 diabetes mellitus without complications
CPT/HCPCS: 36415; 71045; 80053; 83880; 84484; 85025; 93005; 93970

== ENCOUNTER 2023-06-29 07:05 | Emergency (ER) | payer BC, SELFPAY | END 2023-06-29 08:15 | disposition home or self-care (01) | LOC: ERS 07:05 | DX: S63.615A Unspecified sprain of left ring finger, initial encounter (principal); M25.572 Pain in left ankle and joints of left foot; E10.9 Type 1 diabetes mellitus without complications; I10 Essential (primary) hypertension; J45.909 Unspecified asthma, uncomplicated; Z79.51 Long term (current) use of inhaled steroids; Z79.4 Long term (current) use of insulin; X58.XXXA Exposure to other specified factors, initial encounter ==